=== PATIENT | female | born 1950 | race Caucasian/White ===

== ENCOUNTER 2023-12-08 00:51 | Inpatient (IN) ==
[2023-12-08] MEDS ORDERED: SODIUM CHLORIDE 0.9% 500 ML IV ONE (01:06)
[2023-12-08 01:31] LABS: Basophils # (auto) 0.02 K/uL (0.00-0.20); Basophils % (auto) 0.2 %; Eosinophils # (auto) 0.03 K/uL (0.00-0.50); Eosinophils % (auto) 0.3 %; Hematocrit (blood only) 41.9 % (37.0-47.0); Hemoglobin 14.7 g/dl (12.0-16.0); Immature Granulocytes # (auto) 0.05 K/uL (0.01-0.20); Immature Granulocytes % (auto) 0.5 %; Lymphocytes # (auto) 1.94 K/uL (1.20-3.40); Mean Corpuscular Hemoglobin 30.5 pg (25.0-34.0); Mean Corpuscular Hgb Conc 35.1 g/dL (32.0-36.0); Mean Corpuscular Volume 86.9 fL (80.0-100.0); Mean Platelet Volume 10.1 fL (9.4-12.4); Monocytes # (auto) 0.73 K/uL (0.11-0.59); Monocytes % (auto) 7.5 %; Neutrophils # (auto) 6.92 K/uL (1.40-6.50); Neutrophils % (auto) 71.5 %; Platelet Count 267 K/uL (130-400); RDW Coefficient of Variation 12.7 % (11.5-14.5); RDW Standard Deviation 40.3 fL (36.4-46.3); Red Blood Count 4.82 M/uL (4.20-5.40); White Blood Count 9.69 K/ul (4.8-10.8)
[2023-12-08 01:38] LABS: Albumin Level 4.5 gm/dl (3.4-5.0); Bilirubin,Total 0.6 mg/dl (0.2-1.0); Potassium 3.6 mmol/L (3.5-5.1)
[2023-12-08 01:44] LABS: Albumin Globulin Ratio 1.7 (0.9-2); BUN Creatinine Ratio 21.7 (10-20); Creatinine Clr Calc Pharmacy 52.4 ml/min; Est GFR (African American) 79.9 ml/min; Globulin 2.7 gm/dl (2.5-4.0); Total Protein 7.2 gm/dl (6.0-8.3)
[2023-12-08] MEDS ORDERED: ONDANSETRON INJ 2 MG/ML 2 ML VIAL IV STA (01:59)
[2023-12-08] MEDS ORDERED: MoRPHine SULFATE 4 MG/ML 1 ML CARP\\VIAL IV STA (01:59)
--- NOTE | 2023-12-08 02:02 | Emergency Department Note ---
Impression & Plan Renal colic, Acute flank pain, Vomiting ED Provider Note NAME: DONOVAN POTTS AGE: 73 SEX: F : 1950 ARRIVES VIA: Walk-In INFORMANT: Patient ED PROVIDER(S): Baldemar Banegas DO CHIEF COMPLAINT: abdominal pain HPI: Patient is a 73-year-old female who presents to the ER for left mid abdominal pain. States that started several hours prior to arrival associated with nausea and vomiting. No previous abdominal surgeries. Normal bowel movement earlier today. She notes she has never had anything like this before. Denies any dysuria, urgency, or frequency. No headache or change in vision. No chest pain or shortness of breath. Friend at bedside adds additional information/history notes that she has been persistently dry heaving. ADDITIONAL HISTORY OBTAINED: Per HPI Chronic Medical/Social Conditions Affecting Care: Per HPI PAST MEDICAL HISTORY:See Below PAST SURGICAL HISTORY:See Below FAMILY HISTORY:See Below SOCIAL HISTORY:See Below HOME MEDICATIONS:See Below ALLERGIES:See Below VITALS:See Below PHYSICAL EXAMINATION: GENERAL: Sitting up in bed, alert, disheveled, mild distress holding left lower abdomen EYE EXAM: normal conjunctiva. OROPHARYNX: Dry mucous membranes NECK: supple, no nuchal rigidity, no adenopathy, non-tender LUNGS: Clear to auscultation. Normal chest wall mechanics HEART: no murmurs, S1 normal and S2 normal ABDOMEN: abdomen soft, non-tender, normo-active bowel sounds, no masses, no rebound or guarding. UPPER EXTREMITIES: upper extremities are grossly normal. LOWER EXTREMITIES: No pitting edema. NEURO EXAM: Normal sensorium, cranial nerves II-XII grossly intact, normal speech, no gross weakness of arms, no gross weakness of legs. MEDICAL DECISION MAKING: Patient is a 73-year-old female who presents ER for above-stated complaint. IV was established blood work was obtained. Labs show no significant leukocytosis or anemia. BMP with mild hyponatremia 133. LFTs bilirubin was unremarkable. Lipase was normal. UA with hematuria. CT abdomen pelvis shows 1.1 cm left proximal ureteral stone. She was given IV fluids, Zofran, morphine x 2. With the recurrence of the pain and size of stone she was discussed with the hospitalist for further observation. Did discuss with urology as well. Consults/Care Managements Discussions: Per [facility] Triage Nursing notes reviewed. Limited review of prior medical records performed Vital Signs: reviewed and remarkable for no significant abnormalities Differential diagnosis: Differential diagnoses includes but is not limited to gastritis, peptic ulcer disease, GERD, gallbladder disease, pancreatitis, small bowel obstruction, appendicitis, diverticulitis, hernia, urinary tract infection, torsion, /ectopic (if female), perforation, trauma, infectious. ER treatment provided: See below Diagnostics interpreted by me include EKG and cardiac monitoring as listed below: -Cardiac Monitoring: An order was placed for continuous cardiac monitoring. The monitor shows a rate of 70 with sinus rhythm. -ECG: none -Laboratory studies:Interpreted by me as stated above in MDM and shown below. Imaging studies: Xrays: As interpreted by me:none CTs show: CT abdomen pelvis per my preliminary interpretation shows left proximal ureter CT abdomen pelvis per radiology as described above Procedures:none Critical Care: None Past Med/Surg History Social History Smoking Status: Never smoker Preferred Language: [place] Feels Safe at Home: Yes Allergies Allergies Allergy/AdvReac Type Severity Reaction Status Date / Time lisinopril AdvReac Intermediate Cough Verified 12/08/23 02:18 Home Meds Home Medications Medication Instructions Recorded Confirmed amlodipine 5 mg tablet 5 mg PO DAILY 12/08/23 12/08/23 aspirin 81 mg tablet,delayed 81 mg PO DAILY 12/08/23 12/08/23 release calcium carbonate 600 mg-vitamin 1 tab PO BID 12/08/23 12/08/23 D3 10 mcg (400 unit) tablet (Calcium 600 + D(3)) guar gum 1 tbsp PO DAILY 12/08/23 12/08/23 hydrochlorothiazide 12.5 mg capsule 12.5 mg PO DAILY 12/08/23 12/08/23 loratadine 10 mg tablet (Claritin) 10 mg PO DAILY PRN Congestion 12/08/23 12/08/23 metoprolol succinate 25 mg 25 mg PO DAILY 12/08/23 12/08/23 tablet,extended release 24 hr omega-3 fatty acids 1,000 mg 1,000 mg PO DAILY 12/08/23 12/08/23 capsule pravastatin 20 mg tablet 20 mg PO DAILY 12/08/23 12/08/23 venlafaxine 150 mg 150 mg PO DAILY 12/08/23 12/08/23 capsule,extended release 24 hr venlafaxine 37.5 mg 37.5 mg PO DAILY 12/08/23 12/08/23 capsule,extended release 24 hr Results & Data (ED) Vital Signs Vital Signs - 24 hr 12/08/23 00:55 12/08/23 02:49 Temperature 36.4 C L Temperature Source Temporal Artery Scan Pulse Rate 61 Pulse Rate [Apical] 75 Pulse Rhythm [Apical] Regular Pulse Strength [Apical] Normal Respiratory Rate 16 20 Respiratory Effort / Characteristics Non-Labored Respiratory Depth Normal Respiratory Pattern Regular Blood Pressure 154/80 H Blood Pressure [Right Arm] 135/75 Blood Pressure Mean 104 Blood Pressure Mean [Right Arm] 95 Blood Pressure Position [Right Arm] Sitting Pulse Oximetry 99 97 Oxygen Delivery Method Room Air Room Air Sepsis Recent Fever Within 48 Hours No Sepsis New/Unexplained Change in Mental Status No Sepsis Action Taken by Nursing No Action Required Laboratory Data 12/08/23 01:04 12/08/23 01:04 Lab Results 12/08/23 12/08/23 Range/Units 01:04 02:32 WBC 9.69 (4.8-10.8) K/ul RBC 4.82 (4.20-5.40) M/uL Hgb 14.7 (12.0-16.0) g/dl Hct 41.9 (37.0-47.0) % MCV 86.9 (80.0-100.0) fL MCH 30.5 (25.0-34.0) pg MCHC 35.1 (32.0-36.0) g/dL RDW Std Deviation 40.3 (36.4-46.3) fL RDW Coeff of Gayatri 12.7 (11.5-14.5) % Plt Count 267 (130-400) K/uL MPV 10.1 (9.4-12.4) fL Immature Gran % (Auto) 0.5 % Neut % (Auto) 71.5 % Lymph % (Auto) 20.0 % [place] % (Auto) 7.5 % Eos % (Auto) 0.3 % Baso % (Auto) 0.2 % Neut # (Auto) 6.92 H (1.40-6.50) K/uL Lymph # (Auto) 1.94 (1.20-3.40) K/uL [place] # (Auto) 0.73 H (0.11-0.59) K/uL Eos # (Auto) 0.03 (0.00-0.50) K/uL Baso # (Auto) 0.02 (0.00-0.20) K/uL Immature Gran # (Auto) 0.05 (0.01-0.20) K/uL Sodium 133 L (136-145) mmol/L Potassium 3.6 (3.5-5.1) mmol/L Chloride 98 (98-107) mmol/L Carbon Dioxide 22 (21-32) mmol/L Anion Gap 13 H (3-11) BUN 18 (6-23) mg/dl Creatinine 0.83 (0.6-1.2) mg/dl Est Cr Clr Drug Dosing 52.4 ml/min Est GFR ( Amer) 79.9 ml/min Est GFR (Non-Af Amer) 69.0 ml/min BUN/Creatinine Ratio 21.7 H (10-20) Glucose 146 H (70-99(Fasting)) mg/dl Calcium 10.0 (8.6-10.3) mg/dl Total Bilirubin 0.6 (0.2-1.0) mg/dl AST 22 (13-39) U/L ALT 14 (7-52) U/L Alkaline Phosphatase 80 (34-104) U/L Total Protein 7.2 (6.0-8.3) gm/dl Albumin 4.5 (3.4-5.0) gm/dl Globulin 2.7 (2.5-4.0) gm/dl Albumin/Globulin Ratio 1.7 (0.9-2) Lipase 16 (11-82) U/L Urine Color Yellow Urine Appearance Cloudy A (Clear) Urine pH 8.0 H (4.5-7.5) Ur Specific Bow 1.011 (1.000-1.030) Urine Protein Negative (Negative) Urine Glucose (UA) Trace H (Negative) Urine Ketones 1+ H (Negative) Urine Blood 1+ H (Negative) Urine Nitrite Negative (Negative) Urine Bilirubin Negative (Negative) Urine Urobilinogen Negative (Negative) Ur Leukocyte Esterase Negative (Negative) Urine WBC (Auto) 1-5 (0-5) /hpf Urine RBC (Auto) 10-30 H (0-4) /hpf U Hyaline Cast (Auto) 0 (0-5) /lpf U Epithel Cells (Auto) 5-10 H (0-5) /lpf Urine Bacteria (Auto) Negative (Negative) Administered Medications Discontinued Medications Sodium Chloride (Nss) 500 mls @ 999 mls/hr IV .Q31M ONE Stop: 12/08/23 01:36 Last Infusion: 12/08/23 01:48 Dose: Infused Documented By: Admin: 12/08/23 01:08 Dose: 999 mls/hr Documented By: ROGER Ioversol (Optiray 320 500ml) 100 ml IV ONCE ONE Stop: 12/08/23 02:31 Last Admin: 12/08/23 02:30 Dose: 82 ml Documented By: SUDHIR Morphine Sulfate (Morphine Sulfate 4 Mg/Ml 1 Ml Carp\Vial) 4 mg IV NOW STA Stop: 12/08/23 02:00 Last Admin: 12/08/23 02:12 Dose: 4 mg Documented By: KELSEA Morphine Sulfate (Morphine Sulfate 10 Mg/Ml Carp/Vial) 6 mg IV NOW STA Stop: 12/08/23 03:13 Last Admin: 12/08/23 03:40 Dose: 6 mg Documented By: KELSEA Ondansetron HCl (Ondansetron Inj 2 Mg/Ml 2 Ml Vial) 4 mg IV NOW STA Stop: 12/08/23 02:00 Last Admin: 12/08/23 02:13 Dose: 4 mg Documented By: KELSEA Imaging Data Radiologist's Impression: Abdomen/Pelvis CT 12/08/23 01:59 Exam(s): CT ABDOMEN + PELVIS With Contrast IV Amt: 82 ML OPTIRAY 320 EXAM: CT Abdomen and Pelvis With Intravenous Contrast CLINICAL HISTORY: Reason for exam: llq abd pain. TECHNIQUE: Axial computed tomography images of the abdomen and pelvis with intravenous contrast. CTDI is 19.65 mGy and DLP is 840.79 mGy-cm. Automated exposure control was utilized for the study. A dose lowering technique was utilized adhering to the principles of ALARA. CONTRAST: Patient received 82 ML OPTIRAY 320 of IV contrast COMPARISON: No relevant prior studies available. FINDINGS: Lung bases: Unremarkable. No mass. No consolidation. ABDOMEN: Liver: Unremarkable. No mass. Gallbladder and bile ducts: Unremarkable. No calcified stones. No ductal dilation. Pancreas: Unremarkable. No mass. No ductal dilation. Spleen: Unremarkable. No splenomegaly. Adrenals: Unremarkable. No mass. Kidneys and ureters: 1.1 cm left ureteropelvic junction calculus causing moderate hydronephrosis. Stomach and bowel: Unremarkable. No obstruction. No mucosal thickening. PELVIS: Appendix: No findings to suggest acute appendicitis. Bladder: Unremarkable. No mass. Reproductive: Unremarkable as visualized. ABDOMEN and PELVIS: Intraperitoneal space: Unremarkable. No free air. No significant fluid collection. Bones/joints: No acute fracture. No dislocation. Soft tissues: Unremarkable. Vasculature: Unremarkable. No abdominal aortic aneurysm. Lymph nodes: Unremarkable. No enlarged lymph nodes. IMPRESSION: 1.1 cm left ureteropelvic junction calculus causing moderate hydronephrosis. Electronically signed by: Dewayne Fenton M.D. 12/08/23 03:02 AM Discharge Plan Visit Data Chief Complaint: Abdominal Pain Stated Complaint: SEVERE ABDOMINAL PAIN ED Provider: Baldemar Banegas Discharge Problem: Renal colic, Acute flank pain, Vomiting Forms Stand Alone Forms: My [facility] [address] [place] Prescriptions Prescriptions: No Action venlafaxine 37.5 mg capsule,extended release 24hr 37.5 mg PO DAILY Rx Instructions: TOTAL DOSE 187.5 MG--TAKES WITH 150 MG CAP. omega-3 fatty acids 1,000 mg Capsule 1,000 mg PO DAILY venlafaxine 150 mg capsule,extended release 24hr 150 mg PO DAILY Rx Instructions: TOTAL DOSE 187.5 MG--TAKES WITH 37.5 MG CAP. amlodipine 5 mg tablet 5 mg PO DAILY aspirin 81 mg Tablet,Delayed Release (Dr/Ec) 81 mg PO DAILY Benefiber (guar gum) Packet 1 tbsp PO DAILY Rx Instructions: mix into at least 4 oz water or juice before administering hydrochlorothiazide 12.5 mg capsule 12.5 mg PO DAILY pravastatin 20 mg tablet 20 mg PO DAILY metoprolol succinate 25 mg tablet extended release 24 hr 25 mg PO DAILY loratadine [Claritin] 10 mg Tablet 10 mg PO DAILY PRN (Reason: Congestion) calcium carbonate-vitamin D3 [Calcium 600 + D(3)] 600 mg-10 mcg (400 unit) Tablet 1 tab PO BID Referrals Referrals: PCP,NO [Physician] - Discharge Problem: Vomiting Qualifiers: Vomiting type: unspecified Nausea presence: unspecified Qualified Code(s): R 11.10 - Vomiting, unspecified
[2023-12-08] MEDS ORDERED: OPTIRAY 320 500ml IV ONE (02:30)
[2023-12-08 02:45] LABS: Appearance Urine Cloudy (Clear); Bacteria Urine Automated Negative (Negative); Bilirubin Urine Negative (Negative); Blood Urine 1+ (Negative); Cast Urine Automated 0 /lpf (0-5); Color Urine Yellow; Glucose Urine UA Trace (Negative); Ketones Urine 1+ (Negative); Leukocyte Esterase Urine Negative (Negative); Nitrite Urine Negative (Negative); Protein Urine Negative (Negative); Specific Gravity Urine 1.011 (1.000-1.030); Urobilinogen Urine Negative (Negative)
--- NOTE | 2023-12-08 03:03 | CT Scan Report ---
Exam(s): CT ABDOMEN + PELVIS With Contrast IV Amt: 82 ML OPTIRAY 320 EXAM: CT Abdomen and Pelvis With Intravenous Contrast CLINICAL HISTORY: Reason for exam: llq abd pain. TECHNIQUE: Axial computed tomography images of the abdomen and pelvis with intravenous contrast. CTDI is 19.65 mGy and DLP is 840.79 mGy-cm. Automated exposure control was utilized for the study. A dose lowering technique was utilized adhering to the principles of ALARA. CONTRAST: Patient received 82 ML OPTIRAY 320 of IV contrast COMPARISON: No relevant prior studies available. FINDINGS: Lung bases: Unremarkable. No mass. No consolidation. ABDOMEN: Liver: Unremarkable. No mass. Gallbladder and bile ducts: Unremarkable. No calcified stones. No ductal dilation. Pancreas: Unremarkable. No mass. No ductal dilation. Spleen: Unremarkable. No splenomegaly. Adrenals: Unremarkable. No mass. Kidneys and ureters: 1.1 cm left ureteropelvic junction calculus causing moderate hydronephrosis. Stomach and bowel: Unremarkable. No obstruction. No mucosal thickening. PELVIS: Appendix: No findings to suggest acute appendicitis. Bladder: Unremarkable. No mass. Reproductive: Unremarkable as visualized. ABDOMEN and PELVIS: Intraperitoneal space: Unremarkable. No free air. No significant fluid collection. Bones/joints: No acute fracture. No dislocation. Soft tissues: Unremarkable. Vasculature: Unremarkable. No abdominal aortic aneurysm. Lymph nodes: Unremarkable. No enlarged lymph nodes. IMPRESSION: 1.1 cm left ureteropelvic junction calculus causing moderate hydronephrosis. Electronically signed by: Dewayne Fenton M.D. 12/08/23 03:02 AM
[2023-12-08] MEDS ORDERED: MoRPHine SULFATE 10 MG/ML CARP/VIAL IV STA (03:12)
--- OUTSIDE RECORDS SUMMARY | 2023-12-08 03:14 | External Medical Summary | Summary of Care ---
Author Name Unknown Organization [facility] Address [address] [place] [address] Phone [phone] Care Team Providers Care Communications Manager Name Role Phone Marlen Sommers MD Primary Care Provider [phone] Reason for Referral * Evaluate & Treat - Unlimited Visits (Within 30 days (routine)) - Authorized Specialty Diagnoses / Procedures Referred By Contac t Referred To Contact Rheumatology Diagnoses Age-related osteoporosis without current pathological fracture Marlen Sommers MD [address] [place] [address] [address] [id number] Referral ID Status Reason Start Date Expiration Date Visits Requested Visits Authorized [id number] Authorized Specialty Services Required 06/17/[phone] Question Answer Referral Priority Within 30 days (routine) Comments OP , on fosamax for 2 yrs and not doesn't want to take bisphosphonate. Alternative option Reason for Visit * Reason Comments Follow Up 6 month follow up. P atient denied any new concerns. Encounter Details Date Type Department Care Team Description 06/17/2023 Office Visit General Internal [place] [address] [address] Marlen Sommers MD [facility] [address] [address] Hyperlipidemia with target LDL less than 130*; Current mild episode of major depressive disorder without prior episode (HCC); HTN, goal below 140/90; Age-related osteoporosis without current pathological fracture; Other constipation; Encounter for screening mammogram for breast cancer; Impaired fasting glucose; Viral warts, unspecified type; Other viral warts Allergies Active Allergy Reactions Severity Noted Date Comments Lisinopril Cough 11/09/2011 documented as of this encounter (statuses as of 06/27/2023) Medications Medication Sig Dispensed Refills Start Date End Date Status OMEGA-3 FISH OIL 1000 MG PO CAPS 900 mg daily 0 12/11/2011 Active ASPIRIN 81 MG PO CHEW One pill by mouth once a day with food 100 Tab 5 02/01/2014 Active Calcium Carbonate-Vitamin D 600-400 MG-UNIT Oral Tablet Chewable daily. Take 1 tab by mouth twice daily 0 10/21/2018 Active Benefiber On The GO Oral PowderIndications: Other constipation Daily on days when no miralax 0 01/21/2021 Active Loratadine 10 MG Oral Tablet (Claritin)Indicati ons:Post-nasal drip Take by mouth 1 Tablet before bedtime. x1-2 wks then as needed-otc. 1 Tablet 0 01/08/2022 Active Additional Information Patient not taking.Reported on 06/17/2023 Pravastatin Sodium 20 MG Oral Tablet (Pravachol) TAKE ONE TABLET BY MOUTH EVERY DAY 90 Tablet 2 06/03/2023 4 Active Venlafaxine HCl ER 150 MG Oral Capsule Extended Release 24 Hour (Effexor XR)Indications:Dep ressive disorder TAKE ONE CAPSULE BY MOUTH EVERY DAY - DO NOT CUT, CRUSH OR CHEW 90 Capsule 3 06/11/2023 4 Active hydroCHLOROthiazid e 12.5 MG Oral Capsule (Hydrodiuril)Indic ations:HTN, goal below 140/90 TAKE ONE CAPSULE BY MOUTH EVERY DAY 90 Capsule 3 06/11/2023 4 Active amLODIPine Besylate 5 MG Oral Tablet (Norvasc)Indicatio ns:HTN, goal below 140/90 TAKE ONE TABLET BY MOUTH EVERY DAY 90 Tablet 3 06/11/2023 4 Active Metoprolol Succinate ER 25 MG Oral Tablet Extended Release 24 Hour (toPROL XL)Indications:HTN , goal below 140/90 TAKE ONE TABLET BY MOUTH EVERY MORNING 90 Tablet 3 06/12/2023 4 Active Venlafaxine HCl ER 37.5 MG Oral Capsule Extended Release 24 Hour (Effexor XR)Indications:Cur rent mild episode of major depressive disorder without prior episode (HCC) Take 1 Capsule by mouth in the morning. Along with 150 mg . Do not cut, crush or chew. 90 Capsule 3 06/17/2023 Active Docusate Sodium 250 MG CAPS Take 1 Capsule by mouth in the morning. 0 09/02/2017 3 Discontinue d(End of Procedure) Venlafaxine HCl ER 37.5 MG Oral Capsule Extended Release 24 Hour (Effexor XR)Indications:Cur rent mild episode of major depressive disorder without prior episode (HCC) Take 1 Capsule by mouth in the morning. Do not cut, crush or chew. 90 Capsule 3 05/03/2023 3 Discontinue d(Refill) documented as of this encounter (statuses as of 06/27/2023) Active Problems Problem Noted Date Other constipation 05/25/2021 Age-related osteoporosis without current pathological fracture 11/22/2020 Advance directive on file 04/29/2015 Hyperlipidemia with target LDL less than 130 12/11/2011 Overview: ICD-10 update of inactive term HTN, goal below 140/90 Current mild episode of major depressive disorder without prior episode documented as of this encounter (statuses as of 06/27/2023) Resolved Problems Problem Noted Date Resolved Date Impaired fasting glucose 02/01/2014 018 Osteoporosis 03/11/2013 03/30/2013 documented as of this encounter (statuses as of 06/27/2023) Immunizations Name Administration Dates Next Due COVID-19 mRNA, LNP-s, No Pre serve, 2-Dose Series (Janalakshmi) 04/03/2022,08/22/2021,02/03/2021,01/13 Covid-19, Mrna, Lnp-s, Pf, B ivalent, 30 Mcg, IM, 12 yrs and above (Janalakshmi) 10/23/2022 Pneumococcal Conjugate Vacc, 13 Valent (Prevnar) 10/26/2016 Pneumococcal Polysaccharide PPV23 (Pneumovax) 02/01/2014 Seasonal Influenza, Quadriva lent Hd (Fluzone Hd) 10/23/2022 Seasonal Influenza, Quadriva lent, No Preserve, 6 Mons & Above, IM 08/13/2020,10/21/2018,09/02/2017 Seasonal Influenza, Quadriva lent, No Preserve, IM 10/26/2016,11/11/2015 Seasonal Influenza, Split, I IV3, With Preserve, Inj 07/26/2014,08/04/2013,08/09/2012,08/03 Seasonal Influenza, Trivalen t, Adjuvanted, 65+ yrs 11/02/2019 TDAP (age 11 and older)(Adacel) 08/03/2011 Varicella Zoster Vaccine (Adult) 08/04/2013 Zoster Vaccine Recombinant (Shingrix) 05/20/2021 ,11/26/2020 documented as of this encounter Social History Tobacco Use Types Packs/Day Years Used Date Smoking Tobacco: Never Smokeless Tobacco: Never Tobacco Cessation:Counseling Given: Not Answered Alcohol Use Standard Drinks/Week Comments No 25 (1 standard drink = 0.6 oz pu re alcohol) Food Insecurity Answer Date Recorded Within the past 12 months, y ou worried that your food would run out before you got money to buy more. Never true 11/02/2019 Within the past 12 months, t he food you bought just didn't last and you didn't have money to get more. Never true 11/02/2019 Sex Assigned at Date Recorded Female 05/01/2019 11:40 AM EDT Job Start Date Occupation Industry Not on file Not on file Not on file documented as of this encounter Last Filed Vital Signs Vital Sign Reading Time Taken Comments Blood Pressure 128/70 06/17/2023 9:34 AM EDT Pulse 68 06/17/2023 9:34 AM EDT Temperature 35.9 C (96.7 F) 06/17/2023 9:34 AM ED T Respiratory Rate - - Oxygen Saturation 98% 06/17/2023 9:34 AM EDT Inhaled Oxygen Concentration - - Weight 62.5 kg (137 lb 11.2 oz) 06/17/2023 9:34 AM EDT Height 160 cm (5' 3") 06/17/2023 9:34 AM EDT Body Mass Index 24.39 06/17/2023 9:34 AM EDT documented in this encounter Progress Notes * Marlen Sommers MD - 06/17/2023 9:38 AM EDT Images from the original note were not included. History of Present Illness Dawna Diamond is a 72 year old female that presents for Follow Up (6 month follow up. Patient denied any new concerns. ) 72 YOF with PMH of HTN, hyperlipidemia, derpession presents here for recheck. Acute concern :- -wart got better then came back . Been doing OTC Rx Interimmedical history : mood better with medication change Watching diet and exercise : yes Routine labs : due Routine HM : uptodate and agreable to catch up Chronic medical problem: reviewed and stable Physical Exam Vitals: 06/17/23 0934 Temp: 35.9 C (96.7 F) Pulse: 68 SpO2: 98% BP: 128/70 BMI: 24.4 Physical Exam Vitals and nursing note reviewed. Constitutional: General: She is not in acute distress. Appearance: She is normal weight. HENT: Head: Normocephalic. Cardiovascular: Rate and Rhythm: Normal rate and regular rhythm. Pulmonary: Effort: Pulmonary effort is normal. No respiratory distress. Breath sounds: No wheezing. Abdominal: General: Bowel sounds are normal. There is no distension. Palpations: Abdomen is soft. There is no mass. Musculoskeletal: General: No swelling, tenderness or signs of injury. Cervical back: Neck supple. No rigidity. Skin: General: Skin is warm. Findings: Lesion present. No erythema or rash. Comments: Verrucous lesion in both fingers 2 periungual - frozen Neurological: Mental Status: She is alert. Psychiatric: Mood and Affect: Mood normal. A ''time out'' was initiated by myself prior to this procedure. The patient was identified by name and date of . The procedure matches written consent, and correct site identified. Correct positioning (as applicable). There is availability of necessary equipment. Pre-procedure checklist was completed. Patient tolerated procedure and area of procedure as described on exam section I have reviewed the following results: CMP, Lipid Panel, Hemoglobin A1C and TSH Assessment and Plan Hyperlipidemia with target LDL less than 130 Stable Continue current treatment as directed - COMPREHENSIVE METABOLIC PANEL; Future - LIPID PANEL WITH DIRECT LDL IF TG IS HIGH; Future Current mild episode of major depressive disorder without prior episode (HCC) Cont effexor 150 - Venlafaxine HCl ER 37.5 MG Oral Capsule Extended Release 24 Hour (Effexor XR); Take 1 Capsule by mouth in the morning. Along with 150 mg . Do not cut, crush or chew. HTN, goal below 140/90 Stable Continue current treatment as directed - COMPREHENSIVE METABOLIC PANEL; Future - CBC; Future Age-related osteoporosis without current pathological fracture - HIGH RISK OSTEOPOROSIS CLINIC REFERRAL OP - 25-HYDROXY VITAMIN D; Future Other constipation Stable Continue current treatment as directed Encounter for screening mammogram for breast cancer - MAMMOGRAM SCREENING CARINA BILATERAL; Future Impaired fasting glucose - HEMOGLOBIN A1C; Future Viral warts, unspecified type - BENIGN LESION DESTRUCTION, UP TO 14 LESIONS Wrap-Up Time: I spent a total of 30-39 minutes (exact time 35 mins) on the date of service in preparation, delivery, and documentation of the care provided to Dawna Diamond excluding any time spent in the performance of separately billed services. documented in this encounter Nursing Notes * Bro Perez CMA - 06/17/2023 9:33 AM EDT Chief Complaint Patient presents with Follow Up 6 month follow up. Patient denied any new concerns. documented in this encounter Plan of Treatment Upcoming Encounters Date Type Specialty Care Team Description 08/18/2023 Office Visit Internal Medicine Marlen Sommers MD [address] [place] [address] 12/01/2023 Imaging Radiology 12/23/2023 Office Visit Internal Medicine Marlen Sommers MD [address] [address] 01/17/2024 Office Visit Rheumatology Quinten Tapia MD [address] [facility] [place] [address] Scheduled Orders Name Type Priority Associated Diagnoses Orde r Schedule MAMMOGRAM SCREENING CARINA BILATERAL Medical Imaging Routine Encounter for screening mammogram for breast cancer Expected: 11/17/2023, Expires: 07/18/2024 COMPREHENSIVE METABOLIC PANEL Lab Routine Hyperlipidemia with target LDL less than 130 HTN, goal below 140/90 Expected: 12/18/2023, Expires: 06/17/2024 LIPID PANEL WITH DIRECT LDL IF TG IS HIGH Lab Routine Hyperlipidemia with target LDL less than 130 Expected: 12/18/2023, Expires: 06/17/2024 HEMOGLOBIN A1C Lab Routine Impaired fasting glucose Expected: 12/18/2023, Expires: 06/17/2024 25-HYDROXY VITAMIN D Lab Routine Age-related osteoporosis without current pathological fracture Expected: 12/18/2023, Expires: 06/16/2024 CBC Lab Routine HTN, goal below 140/90 Expected: 12/18/2023 (Approximate), Expires: 06/16/2024 BENIGN LESION DESTRUCTION, UP TO 14 LESIONS Procedures Routine Viral warts, unspecified type Ordered: 06/27/2023 Scheduled Procedures Name Priority Associated Diagnoses Date/Ti me COLONOSCOPY FLEXIBLE PROXIMA L DIAGNOSTIC Recall Tubulovillous adenoma of colon Scheduled Referrals Name Type Priority Associated Diagnoses Orde r Schedule HIGH RISK OSTEOPOROSIS CLINIC REFERRAL OP Referral Within 30 days (routine) Age-related osteoporosis without current pathological fracture Ordered: 06/17/2023 Health Maintenance Due Date Last Done Comments DTaP,Tdap,and Td Vaccines (2 - Td or Tdap) 08/03/2021 08/03/2011 Mammogram 11/28/2022 11/28/2021, 12/2019, 11/02/2018, Additional history exists *BISPHONATE OR OTHER ACCEPTABLE MEDICATION NEEDED FOR OSTEOPOROSIS (REFER TO SMARTSET #1146) 12/19/2022 Influenza Vaccine (FLU shot) (#1) 2023 10/23/2022, 08/13/2020, 11/02/2019, Additional history exists Depression Screening, Annual for Pts 12 and Over 12/17/2023 12/17/2022 DXA Scan 01/07/2024 01/07/2022, 06/15, 05/28/2015, Additional history exists GFR 06/11/2024 06/11/2023, 11/16, 06/05/2022, Additional history exists Albumin/Creatinine Ratio 06/11/2025 06/11/2022 COLONOSCOPY-EVERY 5 YRS AGES 18-100 05/14/2026 05/14/2021, 05/14/2021, 11/28/2015, Additional history exists Lipid Panel 06/11/2028 06/11/2023, 11/16, 06/05/2022, Additional history exists Pneumococcal Vaccine: 65+ Years Completed 10/26/2016, 02/01/2014 Zoster Vaccines Completed 05/20/2021, 11/15, 08/04/2013 VITAMIN D LEVEL ONCE IN A LIFETIME-USE SMARTSET# [id number] Completed 06/05/2022, 12/16/2011 COVID-19 Vaccine Completed 10/23/2022, , 08/22/2021, Additional history exists GARDASIL-HPV IMMUNIZATION SERIES Aged Out No longer eligible based on patient's age to complete this topic Hepatitis B Aged Out No longer eligi ble based on patient's age to complete this topic MENINGOCOCCAL (MENACTRA/MENVEO) Aged Out No longer eligible based on patient's age to complete this topic documented as of this encounter Medical Devices Implanted Type Area Electronics Instructor Device Identifier Shelf Expiration Date Model / Serial / Lot Envista Hydrophobic Acrylic Toric Intraocular Lens Toric Implanted:Qty: 1 on 01/13/2022 by Arnoldo Milner MD at OR [facility] Left: Eye [employer] 01/13/2024 [id number] / [id number] / [id number] Toric 17.5 Implanted:Qty: 1 on 01/27/2022 by Arnoldo Milner MD at OR [facility] Right: Eye 02/12/2022 [id number] / [id number] / documented as of this encounter Visit Diagnoses Diagnosis Hyperlipidemia with target LDL less than 130- Primary Other and unspecified hyperlipidemia Current mild episode of major depressive disorder without prior episode (HCC) HTN, goal below 140/90 Unspecified essential hypertension Age-related osteoporosis without current pathological fracture Senile osteoporosis Other constipation Encounter for screening mammogram for breast cancer Impaired fasting glucose Viral warts, unspecified type documented in this encounter Care Teams Communications Manager Relationship Specialty Start Date End Date Marlen Sommers MD [address] [facility] [place] [address] PCP - General Internal Medicine 12/10/11 documented as of this encounter
--- OUTSIDE RECORDS SUMMARY | 2023-12-08 03:14 | External Medical Summary ---
Author Name Unknown Address Unknown Organization K09:[facility] [place] [address] Laboratory Report Ordering Provider Test Date Status SALVADOR VILLALTA 08/17/2023 09:05:58 Final Observation Date Value Abnormality Reference (Units ) Status BUN 08/17/2023 09:05:58 16 6-20 (mg/dL) Final Creatinine 08/17/2023 09:05:58 0.9 0.5-1.0 (mg/dL) Final Glomerular filtration rate/1.73 sq M.predicted [Volume Rate/Area] in Serum, Plasma or Blood by Creatinine-based formula (CKD-EPI) 08/17/2023 09:05:58 65 >=60 (mL/min) Final eGFR is calculated based on the CKD-EPI 2020 equation SODIUM 08/17/2023 09:05:58 139 135-146 (m mol/L) Final Potassium 08/17/2023 09:05:58 4.1 3.5-5.1 (m mol/L) Final Cl 08/17/2023 09:05:58 100 98-107 (mm ol/L) Final CO2 08/17/2023 09:05:58 30 22-32 (mmo l/L) Final Anion gap 08/17/2023 09:05:58 9 7-15 (mmol /L) Final Glucose 08/17/2023 09:05:58 80 70-120 (mg /dL) Final Albumin 08/17/2023 09:05:58 4.8 3.8-5.0 (g /dL) Final AST (Aspartate aminotransferase) 08/17/2023 09:05:58 25 10-35 (U/L) Final Alk Phos 08/17/2023 09:05:58 91 35-130 (U/ L) Final Bilirubin, Total 08/17/2023 09:05:58 0.5 <=1 .2 (mg/dL) Final Calcium 08/17/2023 09:05:58 9.7 8.4-10.2 ( mg/dL) Final Protein 08/17/2023 09:05:58 6.8 6.0-8.3 (g /dL) Final ALT (Alanine aminotransferase) 08/17/2023 09:05:58 30 10-35 (U/L) Final Performing Location [facility] [address] [place] [address]
--- OUTSIDE RECORDS SUMMARY | 2023-12-08 03:14 | External Medical Summary | Summary of Care ---
Author Name Unknown Organization [facility] Address [address] [place] [address] Phone [phone] Care Team Providers Care Environmental Research Scientist Name Role Phone Marlen Sommers MD Primary Care Provider [phone] Reason for Visit * Reason Comments Abdominal Pain C/o lower abdominal pain for the past month. Describes it as a burning pain. Denies urinary or bowel issues or symptoms. Encounter Details Date Type Department Care Team Description 07/29/2023 Office Visit General Internal Medicine [facility] [place] [address] [facility] [place] [address] Marlen Sommers MD [address] [place] [address] Periumbilical abdominal pain*; Other constipation; HTN, goal below 140/90; Hyperlipidemia with target LDL less than 130; Current mild episode of major depressive disorder without prior episode (HCC) Allergies Active Allergy Reactions Severity Noted Date Comments Lisinopril Cough 11/09/2011 documented as of this encounter (statuses as of 08/08/2023) Medications Medication Sig Dispensed Refills Start Date [...] 10/21/2018 Active Benefiber On The GO Oral PowderIndications:Ot her constipation Daily on days when no miralax 0 01/21/2021 Active Loratadine 10 MG Oral Tablet (Claritin)Indication s:Post-nasal drip Take by mouth 1 Tablet before bedtime. x1-2 wks then as needed-otc. 1 Tablet 0 01/08/2022 Active Pravastatin Sodium 20 MG Oral Tablet (Pravachol) TAKE ONE TABLET BY MOUTH EVERY DAY 90 Tablet 2 06/03/2023 06/02/2024 Active Venlafaxine HCl ER 150 MG Oral Capsule Extended Release 24 Hour (Effexor XR)Indications:Depre ssive disorder TAKE ONE CAPSULE BY MOUTH EVERY DAY - DO NOT CUT, CRUSH OR CHEW 90 Capsule 3 06/11/2023 06/10/2024 Active hydroCHLOROthiazide 12.5 MG Oral Capsule (Hydrodiuril)Indicat ions:HTN, goal below 140/90 TAKE ONE CAPSULE BY MOUTH EVERY DAY 90 Capsule 3 06/11/2023 06/10/2024 Active amLODIPine Besylate 5 MG Oral Tablet (Norvasc)Indications :HTN, goal below 140/90 TAKE ONE TABLET BY MOUTH EVERY DAY 90 Tablet 3 06/11/2023 06/10/2024 Active Metoprolol Succinate ER 25 MG Oral Tablet Extended Release 24 Hour (toPROL XL)Indications:HTN, goal below 140/90 TAKE ONE TABLET BY MOUTH EVERY MORNING 90 Tablet 3 06/12/2023 06/11/2024 Active Venlafaxine HCl ER 37.5 MG Oral Capsule Extended Release 24 Hour (Effexor XR)Indications:Curre nt mild episode of major depressive disorder without prior episode (HCC) Take 1 Capsule by mouth in the morning. Along with 150 mg . Do not cut, crush or chew. 90 Capsule 3 06/17/2023 Active Omeprazole 20 MG Oral Capsule Delayed Release (PriLOSEC) Take 1 Capsule by mouth in the morning and 1 Capsule before bedtime. 30 minutes before a meal for 2 weeks then once a day. 60 Capsule 5 07/29/2023 Active documented as of this encounter (statuses as of 08/08/2023) Active Problems Problem Noted Date Other constipation 05/25/2021 Age-related osteoporosis without current pathological fracture 11/22/2020 Advance directive on file 04/29/2015 Hyperlipidemia with target LDL less than 130 12/11/2011 Overview: ICD-10 update of inactive term HTN, goal below 140/90 Current mild episode of major depressive disorder without prior episode documented as of this encounter (statuses as of 08/08/2023) Resolved Problems Problem Noted Date Resolved Date Impaired fasting glucose 02/01/2014 018 Osteoporosis 03/11/2013 03/30/2013 documented as of this encounter (statuses as of 08/08/2023) Immunizations Name Administration Dates Next Due COVID-19 mRNA, LNP-s, No Pre serve, 2-Dose Series (Pfizer) 04/03/2022,08/22/2021,02/03/2021,01/13 Covid-19, Mrna, Lnp-s, Pf, B ivalent, 30 Mcg, IM, 12 yrs and above (Pfizer) 10/23/2022 Pneumococcal Conjugate Vacc, 13 Valent (Prevnar) 10/26/2016 Pneumococcal Polysaccharide PPV23 (Pneumovax) 02/01/2014 Seasonal Influenza, PF, 6 mo ns & Above, IM , (Flulaval) 08/13/2020,10/21/2018,09/02/2017 Seasonal Influenza, Quadriva lent Hd (Fluzone Hd) 10/23/2022 Seasonal Influenza, Quadriva lent, No Preserve, IM 10/26/2016,11/11/2015 Seasonal Influenza, Split, I IV3, With Preserve, Inj 07/26/2014,08/04/2013,08/09/2012,08/03 Seasonal Influenza, Trivalen t, Adjuvanted, 65+ yrs 11/02/2019 TDAP (age 11 and older)(Adacel) 08/03/2011 Varicella Zoster Vaccine (Adult) 08/04/2013 Zoster Vaccine Recombinant (Shingrix) 05/20/2021 ,11/26/2020 documented as of this encounter Social History Tobacco Use Types Packs/Day Years Used Date Smoking Tobacco: Never Smokeless Tobacco: Never Alcohol Use Standard Drinks/Week Comments No 25 [...] Sign Reading Time Taken Comments Blood Pressure 126/70 07/29/2023 4:18 PM EDT Pulse 64 07/29/2023 4:18 PM EDT Temperature 37.3 C (99.1 F) 07/29/2023 4:18 PM ED T Respiratory Rate - - Oxygen Saturation 98% 07/29/2023 4:18 PM EDT Inhaled Oxygen Concentration - - Weight 62.5 kg (137 lb 12.8 oz) 07/29/2023 4:18 PM EDT Height - - Body Mass Index 24.41 06/17/2023 9:34 AM EDT documented in this encounter Progress Notes * Marlen Sommers MD - 07/29/2023 4:26 PM EDT Images from the original note were not included. History of Present Illness Dawna Diamond is a 72 year old female that presents for Abdominal Pain (C/o lower abdominal pain for the past month. Describes it as a burning pain. Denies urinary or bowel issues or symptoms. ) 72 YOF with PMH of HTN, hyperlipidemia, derpession presents here for eval of abdominal pain. Taking omeprazole only as needed and not daily due ot s/e of dementia . We discussed how risk vs benefit are important and risk very small and not likely given vit b12 normal Abdominal Pain This is a new problem. The current episode started more than 1 month ago. The problem occurs constantly. The problem has been unchanged. The pain is located in the periumbilical region. The pain is at a severity of 4/10. The pain is mild (moderate since 2 days ago). The abdominal pain does not radiate. Associated symptoms include belching and nausea. Pertinent negatives include no constipation, diarrhea, dysuria, frequency, headaches or vomiting. The pain is aggravated by palpation and certain positions. The pain is relieved by Nothing. She has tried proton pump inhibitors ( NEEDED) for thesymptoms. Her past medical history is significant for GERD. There is no history of gallstones or PUD. Physical Exam Vitals: 07/29/23 1618 Temp: 37.3 C (99.1 F) Pulse: 64 SpO2: 98% BP: 126/70 Physical Exam Vitals reviewed. Constitutional: General: She is not in acute distress. Appearance: She is normal weight. She is not ill-appearing. HENT: Head: Normocephalic. Mouth/Throat: Mouth: Mucous membranes are moist. Pharynx: Oropharynx is clear. No oropharyngeal exudate or posterior oropharyngeal erythema. Cardiovascular: Rate and Rhythm: Normal rate and regular rhythm. Heart sounds: Normal heart sounds. No murmur heard. Pulmonary: Effort: Pulmonary effort is normal. No respiratory distress. Breath sounds: Normal breath sounds. No wheezing. Abdominal: General: There is no distension. Palpations: Abdomen is soft. There is no mass. Tenderness: There is abdominal tenderness in the epigastric area and periumbilical area. Musculoskeletal: General: No swelling or tenderness. Cervical back: No rigidity or tenderness. Right lower leg: No edema. Left lower leg: No edema. Lymphadenopathy: Cervical: No cervical adenopathy. Skin: General: Skin is warm. Neurological: Mental Status: She is alert. I have reviewed the following results: Assessment and Plan Periumbilical abdominal pain Suspect increased heart burn and gastritis and referred to periumbilical Start omeprazole twice a day for 2 weeks then once a day IF NO BETTER GET LABS ORDERED - CBC; Future - COMPREHENSIVE METABOLIC PANEL; Future - LIPASE; Future Other constipation Cont current plan HTN, goal below 140/90 Hyperlipidemia with target LDL less than 130 Current mild episode of major depressive disorder without prior episode (HCC) Wrap-Up Time: I spent a total of 30-39 minutes (exact time 32 mins) on the date of service in preparation, delivery, and documentation of the care provided to Dawna Diamond excluding any time spent in the performance of separately billed services. documented in this encounter Nursing Notes * Yissel Zavaleta LPN - 07/29/2023 4:18 PM EDT Chief Complaint Patient presents with Abdominal Pain C/o lower abdominal pain for the past month. Describes it as a burning pain. Denies urinary or bowel issues or symptoms. documented in this encounter Plan of Treatment Upcoming Encounters Date Type Specialty Care Team Description 08/18/2023 Office Visit Internal Medicine Marlen Sommers MD [address] [facility] [place] [address] 12/01/2023 Imaging Radiology 12/23/2023 Office Visit Internal Medicine Marlen Sommers MD [address] [facility] [place] [address] 01/17/2024 Office Visit Rheumatology Quinten Tapia MD [address] [place] [address] Scheduled Orders Name Type Priority Associated Diagnoses Orde r Schedule CBC Lab Routine Periumbilical abdominal pain Expected: 07/29/2023 (Approximate), Expires: 07/28/2024 COMPREHENSIVE METABOLIC PANEL Lab Routine Periumbilical abdominal pain Expected: 07/29/2023 (Approximate), Expires: 07/28/2024 LIPASE Lab Routine Periumbilical abdominal pain Expected: 07/29/2023 (Approximate), Expires: 07/28/2024 Scheduled Procedures Name Priority Associated Diagnoses Date/Ti me COLONOSCOPY FLEXIBLE PROXIMA L DIAGNOSTIC Recall Tubulovillous adenoma of colon Health Maintenance Due Date Last Done Comments DTaP,Tdap,and Td Vaccines (2 - Td or Tdap) 08/03/2021 08/03/2011 Mammogram 11/28/2022 11/28/2021, 12/2019, 11/02/2018, Additional history exists *BISPHONATE OR OTHER ACCEPTABLE MEDICATION NEEDED FOR OSTEOPOROSIS (REFER TO SMARTSET #1146) 12/19/2022 Influenza Vaccine (FLU shot) (#1) 2023 10/23/2022, 08/13/2020, 11/02/2019, Additional history exists Depression Screening 12/17/2023 12/17/2022 DXA Scan 01/07/2024 01/07/2022, 06/15, [...] D LEVEL ONCE IN A LIFETIME-USE SMARTSET# 42075 Completed 06/05/2022, 12/16/2011 COVID-19 Vaccine Completed 10/23/2022, [...] this encounter Medical Devices Implanted Type Area Wood Boatbuilder Device Identifier Shelf Expiration Date Model / Serial / Lot Envista Hydrophobic Acrylic Toric Intraocular Lens Toric Implanted:Qty: 1 on 01/13/2022 by Arnoldo Milner MD at OR [facility] Left: Eye [employer]OM[employer] 01/13/2024 [id number] / [id number] / [id number] Toric 17.5 Implanted:Qty: 1 on 01/27/2022 by Arnoldo Milner MD at OR [facility] Right: Eye 02/12/2022 [id number] / [id number] / documented as of this encounter Visit Diagnoses Diagnosis Periumbilical abdominal pain- Primary Abdominal pain, periumbilic Other constipation HTN, goal below 140/90 Unspecified essential hypertension Hyperlipidemia with target LDL less than 130 Other and unspecified hyperlipidemia Current mild episode of major depressive disorder without prior episode (HCC) documented in this encounter Care Teams Environmental Research Scientist Relationship Specialty Start Date End Date Marlen Sommers MD [address] [place] [address], [place] [address] PCP - General Internal Medicine 12/10/11 documented as of this encounter
--- OUTSIDE RECORDS SUMMARY | 2023-12-08 03:14 | External Medical Summary | Summary of Care ---
Author Name Unknown Organization [facility] Address [address] [place] [address] Phone [phone] Care Team Providers Care Mixing Supervisor Name Role Phone Marlen Sommers MD Primary Care Provider [phone] Reason for Visit * Reason Comments Medication Refill Encounter Details Date Type Department Care Team Description 06/11/2023 Refill General Internal Medicine [facility] [address] [facility] [place], [place] [id number] Marlen Sommers MD [address] [place], [place] [id number] HTN, goal below 140/90 Allergies Active Allergy Reactions Severity Noted Date Comments Lisinopril Cough 11/09/2011 documented as of this encounter (statuses as of 06/12/2023) Medications Medication Sig Dispensed Refills Start Date End Date Status OMEGA-3 FISH OIL 1000 MG PO CAPS 900 mg daily 0 12/11/2011 Active ASPIRIN 81 MG PO CHEW One pill by mouth once a day with food 100 Tab 5 02/01/2014 Active Docusate Sodium 250 MG CAPS Take 1 Capsule by mouth in the morning. 0 09/02/2017 Active Calcium Carbonate-Vitamin D 600-400 MG-UNIT Oral Tablet Chewable daily. Take 1 tab by mouth twice daily 0 10/21/2018 Active Benefiber On The GO Oral PowderIndications: Other constipation Daily on days when no miralax 0 01/21/2021 Active Loratadine 10 MG Oral Tablet (Claritin)Indicati ons:Post-nasal drip Take by mouth 1 Tablet before bedtime. x1-2 wks then as needed-otc. 1 Tablet 0 01/08/2022 Active Venlafaxine HCl ER 37.5 MG Oral Capsule Extended Release 24 Hour (Effexor XR)Indications:Cur rent mild episode of major depressive disorder without prior episode (HCC) Take 1 Capsule by mouth in the morning. Do not cut, crush or chew. 90 Capsule 3 05/03/2023 Active Pravastatin Sodium 20 MG Oral Tablet (Pravachol) TAKE ONE TABLET BY MOUTH EVERY DAY 90 Tablet 2 06/03/2023 06/02/2024 Active Venlafaxine HCl ER 150 MG Oral Capsule Extended Release 24 Hour (Effexor XR)Indications:Dep ressive disorder TAKE ONE CAPSULE BY MOUTH EVERY DAY - DO NOT CUT, CRUSH OR CHEW 90 Capsule 3 06/11/2023 06/10/2024 Active hydroCHLOROthiazid e 12.5 MG Oral Capsule [...] MORNING 90 Tablet 3 06/12/2023 06/11/2024 Active Metoprolol Succinate ER 25 MG Oral Tablet Extended Release 24 Hour (toPROL XL)Indications:HTN , goal below 140/90 TAKE ONE TABLET BY MOUTH EVERY MORNING 90 Tablet 3 06/11/2022 06/11/2023 Discontinued (Refill) documented as of this encounter (statuses as of 06/12/2023) Active Problems Problem Noted Date Other constipation 05/25/2021 Age-related osteoporosis without current pathological fracture 11/22/2020 Advance directive on file 04/29/2015 Hyperlipidemia with target LDL less than 130 12/11/2011 Overview: ICD-10 update of inactive term HTN, goal below 140/90 Current mild episode of major depressive disorder without prior episode documented as of this encounter (statuses as of 06/12/2023) Resolved Problems Problem Noted Date Resolved Date Impaired fasting glucose 02/01/2014 018 Osteoporosis 03/11/2013 03/30/2013 documented as of this encounter (statuses as of 06/12/2023) Immunizations Name Administration Dates Next Due COVID-19 [...] on file documented as of this encounter Miscellaneous Notes * Telephone Encounter - Isidro Zamudio [facility] - 06/12/2023 2:01 AM EDTSigned Prescriptions: Disp Refills Metoprolol Succinate ER 25 MG Oral Tablet *90 Tab*3 Sig: TAKE ONE TABLET BY MOUTH EVERY MORNINGAuthorizing Provider: Shazia SOMMERS User: ISIDRO ZAMUDIO- documented in this encounter Plan of Treatment Upcoming Encounters Date Type Specialty Care Team Description 06/17/2023 Office Visit Internal Medicine Marlen Sommers MD [address] [place] [address] Scheduled Procedures Name Priority Associated Diagnoses Date/Ti [...] D LEVEL ONCE IN A LIFETIME-USE SMARTSET# 77823 Completed 06/05/2022, 12/16/2011 COVID-19 Vaccine Completed 10/23/2022, [...] this encounter Medical Devices Implanted Type Area Waste Water Treatment Plant Operator Device Identifier Shelf Expiration Date Model / Serial / Lot Envista Hydrophobic Acrylic Toric Intraocular Lens Toric Implanted:Qty: 1 on 01/13/2022 by Arnoldo Milner MD at OR [facility] Left: Eye [employer]OM[employer] 01/13/2024 [id number] / [id number] / [id number] Toric 17.5 Implanted:Qty: 1 on 01/27/2022 by Arnoldo Milner MD at OR [facility] Right: Eye 02/12/2022 [id number] / [id number] / documented as of this encounter Visit Diagnoses Diagnosis HTN, goal below 140/90 Unspecified essential hypertension documented in this encounter Care Teams Mixing Supervisor Relationship Specialty Start Date End Date Marlen Sommers MD [address] [place] [address] PCP - General Internal Medicine 12/10/11 documented as of this encounter
--- OUTSIDE RECORDS SUMMARY | 2023-12-08 03:14 | External Medical Summary ---
Author Name Unknown Address Unknown Organization K09[facility] [place] [address] Laboratory Report Ordering Provider Test Date Status SALVADOR VILLALTA 08/17/2023 09:05:58 Final Observation Date Value Abnormality Reference (Units ) Status WBC, Total 08/17/2023 09:05:58 6.12 4.00-10.8 0 (K/uL) Final RBC 08/17/2023 09:05:58 4.58 3.85-5.15 (M/uL) Final Hemoglobin 08/17/2023 09:05:58 14.0 12.0-15.3 (g/dL) Final HCT 08/17/2023 09:05:58 42.6 36.0-45.2 (%) Final MCV 08/17/2023 09:05:58 93.0 81.5-97.5 (fL) Final MCH 08/17/2023 09:05:58 30.6 27.0-34.0 (pg) Final MCHC 08/17/2023 09:05:58 32.9 32.0-36.0 (g/dL) Final RDW 08/17/2023 09:05:58 14.3 11.5-15.5 (%) Final Platelets 08/17/2023 09:05:58 263 140-400 (K /uL) Final MPV 08/17/2023 09:05:58 9.7 6.6-11.1 ( fL) Final Performing Location [facility] [place] [address]
--- OUTSIDE RECORDS SUMMARY | 2023-12-08 03:14 | External Medical Summary | Summary of Care ---
Author Name Unknown Organization [facility] Address [address] [place] [address] Phone [phone] Care Team Providers Care Concrete Boom Pump Operator Name Role Phone Malren Sommers MD Primary Care Provider [phone] Reason for Visit * Reason Comments Outpatient Testing Encounter Details Date Type Department Care Team Description 08/17/2023 Laboratory Laboratory [facility] [place] [address] [place] [address] [facility] [address] [place] [id number] Periumbilical abdominal pain Allergies Active Allergy Reactions Severity Noted Date Comments Lisinopril Cough 11/09/2011 documented as of this encounter (statuses as of 08/17/2023) Medications Medication Sig Dispensed Refills Start Date [...] as of this encounter (statuses as of 08/17/2023) Active Problems Problem Noted Date Other constipation 05/25/2021 Age-related osteoporosis without current pathological fracture 11/22/2020 Advance directive on file 04/29/2015 Hyperlipidemia with target LDL less than 130 12/11/2011 Overview: ICD-10 update of inactive term HTN, goal below 140/90 Current mild episode of major depressive disorder without prior episode documented as of this encounter (statuses as of 08/17/2023) Resolved Problems Problem Noted Date Resolved Date Impaired fasting glucose 02/01/2014 018 Osteoporosis 03/11/2013 03/30/2013 documented as of this encounter (statuses as of 08/17/2023) Immunizations Name Administration Dates Next Due COVID-19 mRNA, LNP-s, No Pre serve, 2-Dose Series (Pfizer) 04/03/2022,08/22/2021,02/03/2021,01/13 Covid-19, Mrna, Lnp-s, Pf, B ivalent, 30 Mcg, IM, 12 yrs and above (Pfizer) 10/23/2022 Pneumococcal Conjugate Vacc, 13 Valent (Prevnar) 10/26/2016 Pneumococcal Polysaccharide PPV23 (Pneumovax) 02/01/2014 SEASONAL INFLUENZA, PF, 6 M & Above, IM , (FLULAVAL or FLUZONE) 08/13/2020,10/21/2018,09/02/2017 Seasonal Influenza, Quadriva lent Hd (Fluzone [...] on file documented as of this encounter Plan of Treatment Upcoming Encounters Date Type Specialty Care Team Description 08/18/2023 Office Visit Internal Medicine Marlen Sommers MD [address] [facility] [place] [address] 12/01/2023 Imaging Radiology 12/23/2023 Office Visit Internal Medicine Marlen Sommers MD [address] [facility] [place], [place] [address] 01/17/2024 Office Visit Rheumatology Quinten Tapia MD [address] [facility] [place], [place] [address] Pending Results Name Type Priority Associated Diagnoses Date /Time CBC Lab Routine Periumbilical abdominal pain 08/17/2023 9:05 AM EDT COMPREHENSIVE METABOLIC PANEL Lab Routine Periumbilical abdominal pain 08/17/2023 9:05 AM EDT LIPASE Lab Routine Periumbilical abdominal pain 08/17/2023 9:05 AM EDT Scheduled Procedures Name Priority Associated Diagnoses Date/Ti me COLONOSCOPY FLEXIBLE PROXIMA L DIAGNOSTIC Recall Tubulovillous adenoma of colon Health Maintenance Due Date Last Done Comments DTaP,Tdap,and Td Vaccines (2 - Td or Tdap) 08/03/2021 08/03/2011 Mammogram 11/28/2022 11/28/2021, 12/2019, 11/02/2018, Additional history exists *BISPHONATE OR OTHER ACCEPTABLE MEDICATION NEEDED FOR OSTEOPOROSIS (REFER TO SMARTSET #1146) 12/19/2022 COVID-19 Vaccine ( season) 2023 10/23/2022, 04/03/2022, 08/22/2021, Additional history exists Influenza Vaccine (FLU shot) (#1) 2023 10/23/2022, [...] D LEVEL ONCE IN A LIFETIME-USE SMARTSET# 41660 Completed 06/05/2022, 12/16/2011 GARDASIL-HPV IMMUNIZATION SERIES Aged Out No longer eligible based on patient's age to complete this topic Hepatitis B Aged Out No longer eligi ble based on patient's age to complete this topic MENINGOCOCCAL (MENACTRA/MENVEO) Aged Out No longer eligible based on patient's age to complete this topic documented as of this encounter Medical Devices Implanted Type Area Home Care Scheduler Device Identifier Shelf Expiration Date Model / Serial / Lot Envista Hydrophobic Acrylic Toric Intraocular Lens Toric Implanted:Qty: 1 on 01/13/2022 by Arnoldo Milner MD at OR [facility] Left: Eye [employer] LOMB 01/13/2024 [id number] / [id number] / [id number] Toric 17.5 Implanted:Qty: 1 on 01/27/2022 by Arnoldo Milner MD at OR [facility] Right: Eye 02/12/2022 [id number] / [id number] / documented as of this encounter Visit Diagnoses Diagnosis Periumbilical abdominal pain Abdominal pain, periumbilic documented in this encounter Care Teams Concrete Boom Pump Operator Relationship Specialty Start Date End Date Marlen Sommers MD [address] [place] [address] PCP - General Internal Medicine 12/10/11 documented as of this encounter
--- OUTSIDE RECORDS SUMMARY | 2023-12-08 03:14 | External Medical Summary | Summary of Care ---
Author Name Unknown Organization [facility] Address [address] [place] [address] Phone [phone] Care Team Providers Care Supervisor Winding Department Name Role Phone Marlen Sommers MD Primary Care Provider [phone] Encounter Details Date Type Department Care Team Description 07/06/2023 Orders Only Outcomes Research Department [address] [place] [address] Tete Jiménez CHRA [facility] Research Other*[id number] Allergies Active Allergy Reactions Severity Noted Date Comments Lisinopril Cough 11/09/2011 documented as of this encounter (statuses as of 07/06/2023) Medications Medication Sig Dispensed Refills Start Date [...] 10/21/2018 Active Benefiber On The GO Oral PowderIndications:O ther constipation Daily on days when no miralax 0 01/21/2021 Active Loratadine 10 MG Oral Tablet (Claritin)Indicatio ns:Post-nasal drip Take by mouth 1 Tablet before bedtime. x1-2 wks then as needed-otc. 1 Tablet 0 01/08/2022 Active Additional Information Patient not taking.Reported on 06/17/2023 Pravastatin Sodium 20 MG Oral Tablet (Pravachol) TAKE ONE TABLET BY MOUTH EVERY DAY 90 Tablet 2 06/03/2023 06/02/2024 Active Venlafaxine HCl ER 150 MG Oral Capsule Extended Release 24 Hour (Effexor XR)Indications:Depr essive disorder TAKE ONE CAPSULE BY MOUTH EVERY DAY - DO NOT CUT, CRUSH OR CHEW 90 Capsule 3 06/11/2023 06/10/2024 Active hydroCHLOROthiazide 12.5 MG Oral Capsule (Hydrodiuril)Indica tions:HTN, goal below 140/90 TAKE ONE CAPSULE BY MOUTH EVERY DAY 90 Capsule 3 06/11/2023 06/10/2024 Active amLODIPine Besylate 5 MG Oral Tablet (Norvasc)Indication s:HTN, goal below 140/90 TAKE ONE TABLET BY MOUTH EVERY DAY 90 Tablet 3 06/11/2023 06/10/2024 Active Metoprolol Succinate ER 25 MG Oral Tablet Extended Release 24 Hour (toPROL XL)Indications:HTN, goal below 140/90 TAKE ONE TABLET BY MOUTH EVERY MORNING 90 Tablet 3 06/12/2023 06/11/2024 Active Venlafaxine HCl ER 37.5 MG Oral Capsule Extended Release 24 Hour (Effexor XR)Indications:Curr ent mild episode of major depressive disorder without prior episode (HCC) Take 1 Capsule by mouth in the morning. Along with 150 mg . Do not cut, crush or chew. 90 Capsule 3 06/17/2023 Active documented as of this encounter (statuses as of 07/06/2023) Active Problems Problem Noted Date Other constipation 05/25/2021 Age-related osteoporosis without current pathological fracture 11/22/2020 Advance directive on file 04/29/2015 Hyperlipidemia with target LDL less than 130 12/11/2011 Overview: ICD-10 update of inactive term HTN, goal below 140/90 Current mild episode of major depressive disorder without prior episode documented as of this encounter (statuses as of 07/06/2023) Resolved Problems Problem Noted Date Resolved Date Impaired fasting glucose 02/01/2014 018 Osteoporosis 03/11/2013 03/30/2013 documented as of this encounter (statuses as of 07/06/2023) Immunizations Name Administration Dates Next Due COVID-19 mRNA, LNP-s, No Pre serve, 2-Dose Series (D[place]choo) 04/03/2022,08/22/2021,02/03/2021,01/13 Covid-19, Mrna, Lnp-s, Pf, B ivalent, [...] Marlen Sommers MD [address] [place] [address] [address] 12/01/2023 Imaging Radiology 12/23/2023 Office Visit Internal Medicine Marlen Sommers MD [address] [address] 01/17/2024 Office Visit Rheumatology Quinten Tapia MD [address] [facility], [place] [address] Scheduled Orders Name Type Priority Associated Diagnoses Orde r Schedule MYCODE SUBSEQUENT ADULT Lab Routine [facility] Research Other*[id number] Every 6 Months for 2 Occurrences starting 07/06/2023 until 07/25/2024 Scheduled Procedures Name Priority Associated Diagnoses Date/Ti [...] D LEVEL ONCE IN A LIFETIME-USE SMARTSET# [id number] Completed 06/05/2022, 12/16/2011 COVID-19 Vaccine Completed 10/23/2022, [...] this encounter Medical Devices Implanted Type Area Computer Numerical Control Programmer Device Identifier Shelf Expiration Date Model / Serial / Lot Envista Hydrophobic Acrylic Toric Intraocular Lens Toric Implanted:Qty: 1 on 01/13/2022 by Arnoldo Milner MD at OR [facility] Left: Eye [employer]OM[employer] 01/13/2024 [id number] / [id number] / [id number] Toric 17.5 Implanted:Qty: 1 on 01/27/2022 by Arnoldo Milner MD at OR [facility] Right: Eye 02/12/2022 [id number] / [id number] / documented as of this encounter Visit Diagnoses Diagnosis [facility] Research Other*[id number] documented in this encounter Care Teams Supervisor Winding Department Relationship Specialty Start Date End Date Marlen Sommers MD [address] [place] [id number] PCP - General Internal Medicine 12/10/11 documented as of this encounter
--- OUTSIDE RECORDS SUMMARY | 2023-12-08 03:14 | External Medical Summary | Summary of Care ---
Author Name Unknown Organization [facility] Address [address] [place] [address] Phone [phone] Care Team Providers Care Silversmith Apprentice Name Role Phone Marlen Sommers MD Primary Care Provider [phone] Reason for Visit * Reason Comments Warts Patient presents for wart freezing on multiple fingers. Encounter Details Date Type Department Care Team Description 08/18/2023 Office Visit General Internal Medicine [facility] [address] [place] [address] Marlen Sommers MD [address] [place] [address] Other viral warts*; Periumbilical abdominal pain; Gastroesophageal reflux disease without esophagitis; Other constipation; HTN, goal below 140/90 Allergies Active Allergy Reactions Severity Noted Date Comments Lisinopril Cough 11/09/2011 documented as of this encounter (statuses as of 08/18/2023) Medications Medication Sig Dispensed Refills Start Date [...] as of this encounter (statuses as of 08/18/2023) Active Problems Problem Noted Date Gastroesophageal reflux disease without esophagitis 08/18/2023 Other constipation 05/25/2021 Age-related osteoporosis without current pathological fracture 11/22/2020 Advance directive on file 04/29/2015 Hyperlipidemia with target LDL less than 130 12/11/2011 Overview: ICD-10 update of inactive term HTN, goal below 140/90 Current mild episode of major depressive disorder without prior episode documented as of this encounter (statuses as of 08/18/2023) Resolved Problems Problem Noted Date Resolved Date Impaired fasting glucose 02/01/2014 018 Osteoporosis 03/11/2013 03/30/2013 documented as of this encounter (statuses as of 08/18/2023) Immunizations Name Administration Dates Next Due COVID-19 [...] Sign Reading Time Taken Comments Blood Pressure 122/76 08/18/2023 12:10 PM EDT Pulse 67 08/18/2023 12:10 PM EDT Temperature 36.8 C (98.3 F) 08/18/2023 12:10 PM E DT Respiratory Rate - - Oxygen Saturation 93% 08/18/2023 12:10 PM EDT Inhaled Oxygen Concentration - - Weight 62.8 kg (138 lb 8 oz) 08/18/2023 12:10 PM EDT Height - - Body Mass Index 24.53 06/17/2023 9:34 AM EDT documented in this encounter Progress Notes * Marlen Sommers MD - 08/18/2023 12:19 PM EDT Images from the original note were not included. History of Present Illness Dawna Diamond is a 72 year old female that presents for Warts (Patient presents for wart freezing on multiple fingers.) 72 YOF with PMH of HTN, hyperlipidemia, derpession presents here for wart freezing Acute concern :- -wart has been a little bit of smaller specially in the left pointer finger nail area. Others can'ttell -since last seen started taking omeprazole every day which eventually helped pain. Bowel movement been regular -had abdominal pain 2 weeks ago which lasted for an hour, was central around umbilical area. Some nausea but no vomiting, fever chills. Interimmedical history : As above Routine labs : Reviewed and stable with nothing acute Routine HM : Has appointment for COVID booster and flu shot next week Chronic medical problem: reviewed and stable Physical Exam Vitals: 08/18/23 1210 Temp: 36.8 C (98.3 F) Pulse: 67 SpO2: 93% BP: 122/76 Physical Exam Constitutional: General: She is not in acute distress. Appearance: Normal appearance. She is normal weight. HENT: Right Ear: Tympanic membrane normal. Left Ear: Tympanic membrane normal. Abdominal: General: There is no distension. Tenderness: There is no abdominal tenderness. Skin: Findings: Lesion (Varicose lesions 2 in each hand, 3 of them periungual area, 1st scrapped with scalpel and then for frozen with cryotherapy after consent was obtained) present. No rash. Neurological: Mental Status: She is alert. I have reviewed the following results: Lipase, CMP, and CBC A ''time out'' was initiated by myself prior to this procedure. The patient was identified by name and date of . The procedure matches written consent, and correct site identified. Correct positioning (as applicable). There is availability of necessary equipment. Pre-procedure checklist was completed. Patient tolerated procedure and area of procedure as described on exam section Assessment and Plan Other viral warts - BENIGN LESION DESTRUCTION, UP TO 14 LESIONS Periumbilical abdominal pain Could be muscular or gas pain Discussed to follow clinically and keep an eye on it. Patient verbalized understanding. I asked herto call back if it gets worse Gastroesophageal reflux disease without esophagitis Continue omeprazole every day Other constipation Stable Continue current treatment as directed HTN, goal below 140/90 Wrap-Up Time: I spent a total of 20-29 minutes (exact time 25 mins) on the date of service in preparation, delivery, and documentation of the care provided to Dawna Diamond excluding any time spent in the performance of separately billed services. documented in this encounter Nursing Notes * Yissel Zavaleta LPN - 08/18/2023 12:10 PM EDT Chief Complaint Patient presents with Warts Patient presents for wart freezing on multiple fingers. documented in this encounter Plan of Treatment Upcoming Encounters Date Type Specialty Care Team Description 12/01/2023 Imaging Radiology 12/23/2023 Office Visit Internal Medicine Marlen Sommers MD [address] [place] [address] 01/17/2024 Office Visit Rheumatology Quinten Tapia MD [address] [facility] [place], [place] [address] Scheduled Orders Name Type Priority Associated Diagnoses Orde r Schedule BENIGN LESION DESTRUCTION, UP TO 14 LESIONS Procedures Routine Other viral warts Ordered: 08/18/2023 Scheduled Procedures Name Priority Associated Diagnoses Date/Ti me COLONOSCOPY FLEXIBLE PROXIMA L DIAGNOSTIC Recall Tubulovillous adenoma of colon Health Maintenance Due Date Last Done Comments DTaP,Tdap,and Td Vaccines (2 - Td or Tdap) 08/03/2021 08/03/2011 Mammogram 11/28/2022 11/28/2021, 12/2019, 11/02/2018, Additional history exists *BISPHONATE OR OTHER ACCEPTABLE MEDICATION NEEDED FOR OSTEOPOROSIS (REFER TO SMARTSET #1146) 12/19/2022 COVID-19 Vaccine (2022- season) 2023 10/23/2022, 04/03/2022, 08/22/2021, Additional history exists Influenza Vaccine (FLU shot) (#1) 2023 10/23/2022, 08/13/2020, 11/02/2019, Additional history exists Depression Screening 12/17/2023 12/17/2022 DXA Scan 01/07/2024 01/07/2022, 06/15, 05/28/2015, Additional history exists GFR 08/17/2024 08/17/2023, 05/16, 12/11/2022, Additional history exists Albumin/Creatinine Ratio 06/11/2025 06/11/2022 COLONOSCOPY-EVERY 5 YRS AGES 18-100 05/14/2026 05/14/2021, 05/14/2021, 11/28/2015, Additional history exists Lipid Panel 06/11/2028 06/11/2023, 11/16, 06/05/2022, Additional history exists Pneumococcal Vaccine: 65+ Years Completed 10/26/2016, 02/01/2014 Zoster Vaccines Completed 05/20/2021, 11/15, 08/04/2013 VITAMIN D LEVEL ONCE IN A LIFETIME-USE SMARTSET# 25553 Completed 06/05/2022, 12/16/2011 GARDASIL-HPV IMMUNIZATION SERIES Aged Out No longer eligible based on patient's age to complete this topic Hepatitis B Aged Out No longer eligi ble based on patient's age to complete this topic MENINGOCOCCAL (MENACTRA/MENVEO) Aged Out No longer eligible based on patient's age to complete this topic documented as of this encounter Medical Devices Implanted Type Area Mcat Instructor Device Identifier Shelf Expiration Date Model / Serial / Lot Envista Hydrophobic Acrylic Toric Intraocular Lens Toric Implanted:Qty: 1 on 01/13/2022 by Arnoldo Milner MD at OR [facility] Left: Eye [employer] LOM[employer] 01/13/2024 [id number] / [id number] / [id number] Toric 17.5 Implanted:Qty: 1 on 01/27/2022 by Arnoldo Milner MD at OR [facility] Right: Eye 02/12/2022 [id number] / [id number] / documented as of this encounter Visit Diagnoses Diagnosis Other viral warts- Primary Periumbilical abdominal pain Abdominal pain, periumbilic Gastroesophageal reflux disease without esophagitis Esophageal reflux Other constipation HTN, goal below 140/90 Unspecified essential hypertension documented in this encounter Care Teams Silversmith Apprentice Relationship Specialty Start Date End Date Marlen Sommesr MD [address] [place] [address] PCP - General Internal Medicine 12/10/11 documented as of this encounter
--- OUTSIDE RECORDS SUMMARY | 2023-12-08 03:14 | External Medical Summary ---
Author Name Unknown Address Unknown Organization [id number]:LABORATORY [facility] [place] - [address] [place] [address] Laboratory Report Ordering Provider Test Date Status SALVADOR VILLALTA 08/17/2023 09:05:58 Final Observation Date Value Abnormality Reference (Units ) Status Lipase 08/17/2023 09:05:58 33 13-60 (U/L ) Final Performing Location LABORATORY [facility] - [address] [place] [address]
--- OUTSIDE RECORDS SUMMARY | 2023-12-08 03:15 | External Medical Summary ---
Author Name Unknown Address Unknown Organization [id number]:[facility]ORY [facility] - [address] [place] [address] Laboratory Report Ordering Provider Test Date Status SALVADOR VILLALTA 06/11/2023 07:39:43 Final Observation Date Value Abnormality Reference (Units ) Status BUN 06/11/2023 07:39:43 18 6-20 (mg/dL) Final Creatinine 06/11/2023 07:39:43 1.0 0.5-1.0 (mg/dL) Final Glomerular filtration rate/1.73 sq M.predicted [Volume Rate/Area] in Serum, Plasma or Blood by Creatinine-based formula (CKD-EPI) 06/11/2023 07:39:43 61 >=60 (mL/min) Final eGFR is calculated based on the CKD-EPI 2020 equation SODIUM 06/11/2023 07:39:43 138 135-146 (m mol/L) Final Potassium 06/11/2023 07:39:43 4.6 3.5-5.1 (m mol/L) Final Cl 06/11/2023 07:39:43 101 98-107 (mm ol/L) Final CO2 06/11/2023 07:39:43 27 22-32 (mmo l/L) Final Anion gap 06/11/2023 07:39:43 10 7-15 (mmol /L) Final Glucose 06/11/2023 07:39:43 98 70-120 (mg /dL) Final Albumin 06/11/2023 07:39:43 4.6 3.8-5.0 (g /dL) Final AST (Aspartate aminotransferase) 06/11/2023 07:39:43 21 10-35 (U/L) Final Alk Phos 06/11/2023 07:39:43 95 35-130 (U/ L) Final Bilirubin, Total 06/11/2023 07:39:43 0.4 <=1 .2 (mg/dL) Final Calcium 06/11/2023 07:39:43 9.5 8.4-10.2 ( mg/dL) Final Protein 06/11/2023 07:39:43 6.5 6.0-8.3 (g /dL) Final ALT (Alanine aminotransferase) 06/11/2023 07:39:43 16 10-35 (U/L) Final Performing Location [facility] [address] [place] [address]
--- OUTSIDE RECORDS SUMMARY | 2023-12-08 03:15 | External Medical Summary ---
Author Name Unknown Address Unknown Organization [id number]:LABORATORY [facility] [place] - [address] [place] [address] Laboratory Report Ordering Provider Test Date Status SALVADOR VILLALTA 06/11/2023 07:39:43 Final Observation Date Value Abnormality Reference (Units ) Status HbA1C 06/11/2023 07:39:43 5.8 Above high normal 4. 0-5.6 (%) Final The use of HbA1c to monitor glycemic status is based on normal hemoglobin and HbA composition. This test should not be used in patients with abnormal hemoglobin that affects the half life of the red blood cell or the in vivo glycation rates. Glucose, estimated average 06/11/2023 07:39:43 120 <126 (mg/dL) Final Performing Location LABORATORY [facility] [place] - [address] [place] [address]
--- OUTSIDE RECORDS SUMMARY | 2023-12-08 03:15 | External Medical Summary | Summary of Care ---
Author Name Unknown Organization [facility] Address [address] [place] [address] Phone [phone] Care Team Providers Care Senior Director Creative Services Name Role Phone Marlen Sommers MD Primary Care Provider [phone] Reason for Visit * Reason Comments Outpatient Testing Encounter Details Date Type Department Care Team Description 06/11/2023 Laboratory Laboratory [facility] [place] [address] [place] [address] [facility] [address] [place] [address] HTN, goal below 140/90; Impaired fasting glucose; Hyperlipidemia with target LDL less than 130 Allergies Active Allergy Reactions Severity Noted Date Comments Lisinopril Cough 11/09/2011 documented as of this encounter (statuses as of 06/11/2023) Medications Medication Sig Dispensed Refills Start Date [...] or chew. 90 Capsule 3 05/03/2023 Active Metoprolol Succinate ER 25 MG Oral Tablet Extended Release 24 Hour (toPROL XL)Indications:HTN, goal below 140/90 TAKE ONE TABLET BY MOUTH EVERY MORNING 90 Tablet 3 06/11/2022 06/11/2023 Active Pravastatin Sodium 20 MG Oral Tablet (Pravachol) TAKE ONE TABLET BY MOUTH EVERY DAY 90 Tablet 2 06/03/2023 06/02/2024 Active documented as of this encounter (statuses as of 06/11/2023) Active Problems Problem Noted Date Other constipation 05/25/2021 Age-related osteoporosis without current pathological fracture 11/22/2020 Advance directive on file 04/29/2015 Hyperlipidemia with target LDL less than 130 12/11/2011 Overview: ICD-10 update of inactive term HTN, goal below 140/90 Current mild episode of major depressive disorder without prior episode documented as of this encounter (statuses as of 06/11/2023) Resolved Problems Problem Noted Date Resolved Date Impaired fasting glucose 02/01/2014 018 Osteoporosis 03/11/2013 03/30/2013 documented as of this encounter (statuses as of 06/11/2023) Immunizations Name Administration Dates Next Due COVID-19 mRNA, LNP-s, No Pre serve, 2-Dose Series (Foxtrot) 04/03/2022,08/22/2021,02/03/2021,01/13 Covid-19, Mrna, Lnp-s, Pf, B ivalent, 30 Mcg, IM, 12 yrs and above (Foxtrot) 10/23/2022 Pneumococcal Conjugate Vacc, 13 Valent (Prevnar) [...] Visit Internal Medicine Marlen Sommers MD [address] [facility], [place] [address] Pending Results Name Type Priority Associated Diagnoses Date /Time HEMOGLOBIN A1C Lab Routine HTN, goal below 140/90 Impaired fasting glucose 06/11/2023 7:39 AM EDT COMPREHENSIVE METABOLIC PANEL Lab Routine Hyperlipidemia with target LDL less than 130 06/11/2023 7:39 AM EDT LIPID PANEL WITH DIRECT LDL IF TG IS HIGH Lab Routine Hyperlipidemia with target LDL less than 130 06/11/2023 7:39 AM EDT Scheduled Procedures Name Priority Associated [...] 2023 10/23/2022, 08/13/2020, 11/02/2019, Additional history exists GFR 12/11/2023 12/11/2022, 05/16, 11/19/2021, Additional history exists Depression Screening, Annual for Pts 12 and Over 12/17/2023 12/17/2022 DXA Scan 01/07/2024 01/07/2022, 06/15, 05/28/2015, Additional history exists Albumin/Creatinine Ratio 06/11/2025 06/11/2022 COLONOSCOPY-EVERY 5 YRS AGES 18-100 05/14/2026 05/14/2021, 05/14/2021, 11/28/2015, Additional history exists Lipid Panel 12/11/2027 12/11/2022, 05/16, 11/19/2021, Additional history exists Pneumococcal Vaccine: 65+ Years Completed 10/26/2016, 02/01/2014 Zoster Vaccines Completed 05/20/2021, 11/15, 08/04/2013 VITAMIN D LEVEL ONCE IN A LIFETIME-USE SMARTSET# [id number] Completed 06/05/2022, 12/16/2011 COVID-19 Vaccine Completed 10/23/2022, [...] this encounter Medical Devices Implanted Type Area Warehouse Shipper Device Identifier Shelf Expiration Date Model / Serial / Lot Envista Hydrophobic Acrylic Toric Intraocular Lens Toric Implanted:Qty: 1 on 01/13/2022 by Arnoldo Milner MD at OR [facility] Left: Eye [employer] LOM[employer] 01/13/2024 [id number] / [id number] / [id number] Toric 17.5 Implanted:Qty: 1 on 01/27/2022 by Arnoldo Milner MD at OR [facility] Right: Eye 02/12/2022 [id number] / [id number] / documented as of this encounter Visit Diagnoses Diagnosis HTN, goal below 140/90 Unspecified essential hypertension Impaired fasting glucose Hyperlipidemia with target LDL less than 130 Other and unspecified hyperlipidemia documented in this encounter Care Teams Senior Director Creative Services Relationship Specialty Start Date End Date Marlen Sommers MD [address] [facility], [place] [id number] PCP - General Internal Medicine 12/10/11 documented as of this encounter
--- OUTSIDE RECORDS SUMMARY | 2023-12-08 03:15 | External Medical Summary ---
Author Name Unknown Address Unknown Organization [id number]:LABORATORY [facility] [place] - [address] [facility] [address] Laboratory Report Ordering Provider Test Date Status MORIS VILLALTAALI 06/11/2023 07:39:43 Final Observation Date Value Abnormality Reference (Units ) Status Triglyceride 06/11/2023 07:39:43 54 <=174 ( mg/dL) Final Triglyceride Reference Range s (mg/dL):
<150 Acceptable
150-174 Borderline high
175-499 High
>=500 Very high Cholesterol 06/11/2023 07:39:43 184 <200 (mg /dL) Final Total Cholesterol Reference Ranges (mg/dL):
<200 Desirable
200-239 Borderline high
>=240 High HDL 06/11/2023 07:39:43 82 >49 (mg/dL ) Final HDL Cholesterol Reference Ra nges (mg/dL):
>=60 High (Desirable)
<50 Low (Undesirable) For Females
<40 Low (Undesirable) For Males NON-HDL CHOLESTEROL 06/11/2023 07:39:43 102 <=159 (mg/dL) Final Non-HDL Cholesterol Referenc e Range (mg/dL):
<100 Target level for high risk ASCVD patient
<130 Optimal for general population
130-159 Near optimal for general population
160-189 Borderline High
190-219 High
>=220 Very High LDL, (calculated) 06/11/2023 07:39:43 91 <= 129 (mg/dL) Final LDL Cholesterol Reference Ra nges (mg/dL):
<70 Target level for high risk ASCVD patient
<100 Optimal for general population
100-129 Near optimal for general population
130-159 Borderline high
160-189 High
>=190 Very high Performing Location LABORATORY [facility] [place] - [address] [facility] [address]
--- OUTSIDE RECORDS SUMMARY | 2023-12-08 03:15 | External Medical Summary | Summary of Care ---
Author Name Unknown Organization [facility] Address [address] [place] [address] Phone [phone] Care Team Providers Care Core Maker Name Role Phone Ambar Sommers MD Primary Care Provider [phone] Reason for Visit * Reason Comments Medication Refill Encounter Details Date Type Department Care Team Description 06/10/2023 Refill General Internal Medicine [facility] [address] [facility] [place], [place] [id number] Ambar Sommers MD [address] [place], [place] [id number] Depressive disorder; HTN, goal below 140/90 Allergies Active Allergy [...] DAY 90 Tablet 3 06/11/2023 06/10/2024 Active amLODIPine Besylate 5 MG Oral Tablet (Norvasc)Indicatio ns:HTN, goal below 140/90 TAKE ONE TABLET BY MOUTH EVERY DAY 90 Tablet 3 06/09/2022 06/10/2023 Discontinued (Refill) hydroCHLOROthiazid e 12.5 MG Oral Capsule (Hydrodiuril)Indic ations:HTN, goal below 140/90 TAKE ONE CAPSULE BY MOUTH EVERY DAY 90 Capsule 3 06/09/2022 06/10/2023 Discontinued (Refill) Venlafaxine HCl ER 150 MG Oral Capsule Extended Release 24 Hour (Effexor XR)Indications:Dep ressive disorder TAKE ONE CAPSULE BY MOUTH EVERY DAY - DO NOT CUT, CRUSH OR CHEW 90 Capsule 3 06/09/2022 06/10/2023 Discontinued (Refill) documented as of this encounter [...] encounter Miscellaneous Notes * Telephone Encounter - Thalia Don RPh - 06/11/2023 9:23 AM EDTSigned Prescriptions: Disp Refills Venlafaxine HCl ER 150 MG Oral Capsule Ext*90 Cap*3 Sig: TAKE ONE CAPSULE BY MOUTH EVERY DAY - DO NOT CUT, CRUSH OR CHEW Authorizing Provider: AMBAR SOMMERS Ordering User: THALIA DON hydroCHLOROthiazide 12.5 MG Oral Capsule (*90 Cap*3 Sig: TAKE ONE CAPSULE BY MOUTH EVERY DAY Authorizing Provider: AMBAR SOMMERS Or mecca User: THALIA DON amLODIPine Besylate 5 MG Oral Tablet (Norv*90 Tab*3 Sig: TAKE ONE TABLET BY MOUTH EVERY DAY Authorizing Provider: AMBAR SOMMERS Ordering User: THALIA DON * Telephone Encounter - Interconnect User - 06/10/2023 9:30 AM EDTPending Prescriptions: Disp Refills Venlafaxine HCl ER 150 MG Oral Capsule Ext*90 Cap*3 Sig: TAKE ONE CAPSULE BY MOUTH EVERY DAY - DO NOT CUT, CRUSH OR CHEW hydroCHLOROthiazide 12.5 MG Oral Capsule (*90 Cap*3 Sig: TAKE ONE CAPSULE BY MOUTH EVERY DAY * Telephone Encounter - Interconnect User - 06/10/2023 9:30 AM EDTPending Prescriptions: Disp Refills Venlafaxine HCl ER 150 MG Oral Capsule Ext*90 Cap*3 Sig: TAKE ONE CAPSULE BY MOUTH EVERY DAY - DO NOT CUT, CRUSH OR CHEW hydroCHLOROthiazide 12.5 MG Oral Capsule (*90 Cap*3 Sig: TAKE ONE CAPSULE BY MOUTH EVERY DAY amLODIPine Besylate 5 MG Oral Tablet (Norv*90 Tab*3 Sig: TAKE ONE TABLET BY MOUTH EVERY DAY documented in this encounter Plan of Treatment Upcoming Encounters Date Type Specialty Care Team Description 06/17/2023 Office Visit Internal Medicine Ambar Sommers MD [address] [place] [phone] Scheduled Procedures Name Priority Associated Diagnoses Date/Ti [...] D LEVEL ONCE IN A LIFETIME-USE SMARTSET# [id number] Completed 06/05/2022, 12/16/2011 COVID-19 Vaccine Completed 10/23/2022, [...] this encounter Medical Devices Implanted Type Area Piano Tuner Device Identifier Shelf Expiration Date Model / Serial / Lot Envista Hydrophobic Acrylic Toric Intraocular Lens Toric Implanted:Qty: 1 on 01/13/2022 by Arnoldo Milner MD at OR [facility] Left: Eye [employer] 01/13/2024 [id number] / [id number] / [id number] Toric 17.5 Implanted:Qty: 1 on 01/27/2022 by Arnoldo Milner MD at OR [facility] Right: Eye 02/12/2022 [id number] / [id number] / documented as of this encounter Visit Diagnoses Diagnosis Depressive disorder Depressive disorder, not elsewhere classified HTN, goal below 140/90 Unspecified essential hypertension documented in this encounter Care Teams Core Maker Relationship Specialty Start Date End Date Ambar Sommers MD [address] [place] [place] [address] PCP - General Internal Medicine 12/10/11 documented as of this encounter
[2023-12-08] MEDS ORDERED: TAMSULOSIN HCL 0.4 MG CAP PO ONE (03:51)
--- NOTE | 2023-12-08 03:54 | Urology Consultation ---
Date of Consultation December 08, 2023 Assessment & Plan (1) Renal colic: I discussed with the treating emergency room physician and the patient is being admitted on the hospitalist service. We recommend proceeding as follows: Provide analgesics Provide antiemetics Provide IV fluid for hydration Initiate Flomax for expulsive therapy Follow serial labs Implement n.p.o. status At the present time the patient is noted to be afebrile and normotensive without tachycardia. She also does not exhibit leukocytosis or acute kidney injury and does not have any evidence of urinary tract infection or sepsis. I therefore think a trial of conservative treatment is a reasonable approach at this time. However, due to the size of the patient's kidney stone and may be less likely she will pass this stone even with therapy as outlined above. We therefore keep her n.p.o. for the present time as noted above and she will be reevaluated the morning of 12/08/2023 and a determination was made if patient require cystoscopic intervention. Additional recommendations be forthcoming based on her clinical course as unfolds History of Present Illness Reason for Consultation: Nephrolithiasis History of Present Illness This is a 73-year-old female who presented the emergency department secondary to left-sided abdominal pain. Patient notes that she has been having some nonspe cific abdominal pain for several months and she states she was seen by her primary care team and treated for gastroesophageal reflux disease. Patient notes that yesterday the patient had some severe abdominal pain located on the left side of her abdomen. She did not really have much in the way of flank pain. She did have associated nausea with dry heaves but denies any fevers, shakes, or chills. Patient says she is not having any urinary difficulties specifically noting she is not having any dysuria, urinary frequency, or hematuria. Patient notes that she has never had kidney stones in the past. Since arrival to the hospital the patient has had labs and imaging which independent reviewed. The patient had a CT scan of the abdomen and pelvis that showed a 1.1 cm left ureteropelvic junction kidney stone causing moderate hydronephrosis. Labs include a CBC her white blood cell count, hemoglobin, hematocrit, platelet count were all within normal range. Chemistry profile showed sodium was 133 with a normal potassium. Her BUN and creatinine were both within normal range. The patient was noted to have cloudy appearing urine but it was negative for nitrites and negative for leukocyte Estrace. There is no pyuria or bacteria noted on this study. At the time of my interview she was resting comfortably in bed and she was no distress Allergies Allergy/AdvReac Type Severity Reaction Status Date / Time lisinopril AdvReac Intermediate Cough Verified 12/08/23 02:18 Home Medications Medication Instructions Recorded Confirmed Type amlodipine 5 mg tablet 5 mg PO DAILY 12/08/23 12/08/23 History aspirin 81 mg tablet,delayed 81 mg PO DAILY 12/08/23 12/08/23 History release calcium carbonate 600 mg-vitamin 1 tab PO BID 12/08/23 12/08/23 History D3 10 mcg (400 unit) tablet (Calcium 600 + D(3)) guar gum 1 tbsp PO DAILY 12/08/23 12/08/23 History hydrochlorothiazide 12.5 mg capsule 12.5 mg PO DAILY 12/08/23 12/08/23 History loratadine 10 mg tablet (Claritin) 10 mg PO DAILY PRN Congestion 12/08/23 12/08/23 History metoprolol succinate 25 mg 25 mg PO DAILY 12/08/23 12/08/23 History tablet,extended release 24 hr omega-3 fatty acids 1,000 mg 1,000 mg PO DAILY 12/08/23 12/08/23 History capsule pravastatin 20 mg tablet 20 mg PO DAILY 12/08/23 12/08/23 History venlafaxine 150 mg 150 mg PO DAILY 12/08/23 12/08/23 History capsule,extended release 24 hr venlafaxine 37.5 mg 37.5 mg PO DAILY 12/08/23 12/08/23 History capsule,extended release 24 hr Patient History Social History Smoking Status: Never smoker Preferred Language: Frisian Feels Safe at Home: Yes Review of Systems Constitutional: no fever and no chills Ear, Nose, Mouth, Throat: no ear pain Respiratory: no cough and no dyspnea Cardiovascular: no chest pain Gastrointestinal: + abdominal pain, + nausea and + vomitin g Genitourinary: no dysuria and no flank pain Musculoskeletal: no back pain Integumentary: no rash Neurologic: no localized weakness Physical Exam Constitutional: WD/WN, vitals as above Eyes: no conjunctival abnormality ENMT: Ears: no hearing impairment and no external ear abnormality Mouth: no oropharynx abnormality Neck: trachea midline Respiratory: normal respiratory effort; no respiratory distress and no labored breathing Cardiovascular: Rate/Rhythm: regular rate and regular rhythm Gastrointestinal (Abdomen): Abdomen is soft and nondistended. There is no rebound tenderness or guarding. There is no pain with palpation at the time of my exam Musculoskeletal: No calf tenderness Skin: no rashes Neurologic: moves all extremities Psychiatric: A+Ox3, euthymic affect Genitourinary: No CVA tenderness with percussion Results & Data Vital Signs (Past 12 Hours) Vital Signs Temp Pulse Pulse Resp BP BP Pulse Ox 12/08/23 02:49 75 20 135/75 97 12/08/23 00:55 36.4 C L 61 16 154/80 H 99 O2 Del Method 12/08/23 02:49 Room Air 12/08/23 00:55 Room Air PG Care Time/CCT Total # of Minutes Spent Total Time Spent with Patient: Total time spent is greater than 50% in coordination of care (as documented) at patient's floor/unit and/or counseling patient: Coding Level of Care Code 59048 INT INP/OBS CARE 3/75MIN Diagnoses Renal colic N23
--- NOTE | 2023-12-08 04:16 | History & Physical Report ---
Date of Service December 08, 2023 Assessment & Plan (1) Renal colic: Plan: 73-year-old female with past med history significant for hyperlipidemia, hypertension, constipation, GERD, osteoporosis, mild depression presents with the left lower abdominal pain and found to have 1.1 cm left ureteropelvic junction calculus causing moderate hydronephrosis. Left renal colic 1.1 cm left uteropelvic junction calculus causing moderate hydronephrosis No UTI or LURDES Hemodynamic stable Will keep her n.p.o. IV fluids IV morphine as needed IV antiemetics as needed Flomax Urology consulted and further recommendation as per urology Hypertension Continue metoprolol succinate and hydrochlorothiazide and amlodipine Will monitor Hyperlipidemia On statin Depression On venlafaxine DVT prophylaxis SCDs Disposition Admit to medical floor Full code History of Present Illness Chief Complaint: Left renal colic Primary Care Provider: Marlen Sommers MD 73-year-old female with past med history significant for hyperlipidemia, hypertension, constipation, GERD, osteoporosis, mild depression presents with the left lower abdominal pain and found to have 1.1 cm left ureteropelvic junction calculus causing moderate hydronephrosis. Patient states having left lower abdominal severe pain since yesterday afternoon. Associated with nausea and dry heaves. Was having chills and sweating. With the pain medication the pain is improved but she having some imbalance after the morphine. Denies any fever. No burning micturition. No hematuria. Somewhat constipated but had a normal bowel movement yesterday morning. Denies any chest pain or shortness of breath. No cough. No headache. No blurred visions. No earache no runny nose or no sore throat. Currently resting comfortably and hemodynamically stable. Past medical history. As mentioned above Past surgical history. Bilateral carpal tunnel surgery. Colonoscopy. Dilatation curettage. Removal of heel spur on left side. Bilateral cataracts. Tonsillectomy 2019. Left elbow fracture repair. Left femur head and neck repair. Social history. . No smoking. No alcohol use. No drug use. Family history. Mother had heart disorder. Ruptured AAA. Father had polio. Paternal grandfather had pancreatic cancer. Heart disorder. Paternal grandmother had Alzheimer's. Diabetes. Maternal grandfather had heart disorder. Maternal grandmother had diabetes. Heart disorder. Allergies Allergy/AdvReac Type Severity Reaction Status Date / Time lisinopril AdvReac Intermediate Cough Verified 12/08/23 02:18 Home Medications Medication Instructions Recorded Confirmed Type amlodipine 5 mg tablet 5 mg PO DAILY 12/08/23 12/08/23 History aspirin 81 mg tablet,delayed 81 mg PO DAILY 12/08/23 12/08/23 History release calcium carbonate 600 mg-vitamin 1 tab PO BID 12/08/23 12/08/23 History D3 10 mcg (400 unit) tablet (Calcium 600 + D(3)) guar gum 1 tbsp PO DAILY 12/08/23 12/08/23 History hydrochlorothiazide 12.5 mg capsule 12.5 mg PO DAILY 12/08/23 12/08/23 History loratadine 10 mg tablet (Claritin) 10 mg PO DAILY PRN Congestion 12/08/23 12/08/23 History metoprolol succinate 25 mg 25 mg PO DAILY 12/08/23 12/08/23 History tablet,extended release 24 hr omega-3 fatty acids 1,000 mg 1,000 mg PO DAILY 12/08/23 12/08/23 History capsule pravastatin 20 mg tablet 20 mg PO DAILY 12/08/23 12/08/23 History venlafaxine 150 mg 150 mg PO DAILY 12/08/23 12/08/23 History capsule,extended release 24 hr venlafaxine 37.5 mg 37.5 mg PO DAILY 12/08/23 12/08/23 History capsule,extended release 24 hr Past Med/Surg History Social History Smoking Status: Never smoker Hx Alcohol Use: Yes Alcohol type: beer, wine and hard liquor Hx Substance Use: No Preferred Language: Turkish Communication Ability: 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 Head- atraumatic Eyes- PERRL. ENT- oropharynx clear Neck- supple, no JVD. Lungs- clear to auscultation no wheezing or crackles. Heart- regular rhythm; no murmur, no gallop. Abdomen- normal bowel sounds, soft, nontender, no distension. Extremities- no pretibial edema, no erythema seen. Neuro- alert, oriented x 3; PERRL, no facial palsy; no dysarthria; moves extremities Skin- warm & dry Results & Data Results & Data Vital Signs (Past 12 Hours) Vital Signs Temp Pulse Pulse Resp BP BP Pulse Ox 12/08/23 02:49 75 20 135/75 97 12/08/23 00:55 36.4 C L 61 16 154/80 H 99 O2 Del Method 12/08/23 02:49 Room Air 12/08/23 00:55 Room Air Diagnostic Findings Laboratory Results WBC 9.69 K/ul (4.8-10.8) 12/08/23 01:04 RBC 4.82 M/uL (4.20-5.40) 12/08/23 01:04 Hgb 14.7 g/dl (12.0-16.0) 12/08/23 01:04 Hct 41.9 % (37.0-47.0) 12/08/23 01:04 MCV 86.9 fL (80.0-100.0) 12/08/23 01:04 MCH 30.5 pg (25.0-34.0) 12/08/23 01:04 MCHC 35.1 g/dL (32.0-36.0) 12/08/23 01:04 RDW Std Deviation 40.3 fL (36.4-46.3) 12/08/23 01:04 RDW Coeff of Gayatri 12.7 % (11.5-14.5) 12/08/23 01:04 Plt Count 267 K/uL (130-400) 12/08/23 01:04 MPV 10.1 fL (9.4-12.4) 12/08/23 01:04 Immature Gran % (Auto) 0.5 % 12/08/23 01:04 Neut % (Auto) 71.5 % 12/08/23 01:04 Lymph % (Auto) 20.0 % 12/08/23 01:04 [place] % (Auto) 7.5 % 12/08/23 01:04 Eos % (Auto) 0.3 % 12/08/23 01:04 Baso % (Auto) 0.2 % 12/08/23 01:04 Neut # (Auto) 6.92 K/uL (1.40-6.50) H 12/08/23 01:04 Lymph # (Auto) 1.94 K/uL (1.20-3.40) 12/08/23 01:04 [place] # (Auto) 0.73 K/uL (0.11-0.59) H 12/08/23 01:04 Eos # (Auto) 0.03 K/uL (0.00-0.50) 12/08/23 01:04 Baso # (Auto) 0.02 K/uL (0.00-0.20) 12/08/23 01:04 Immature Gran # (Auto) 0.05 K/uL (0.01-0.20) 12/08/23 01:04 Sodium 133 mmol/L (136-145) L 12/08/23 01:04 Potassium 3.6 mmol/L (3.5-5.1) 12/08/23 01:04 Chloride 98 mmol/L (98-107) 12/08/23 01:04 Carbon Dioxide 22 mmol/L (21-32) 12/08/23 01:04 Anion Gap 13 (3-11) H 12/08/23 01:04 BUN 18 mg/dl (6-23) 12/08/23 01:04 Creatinine 0.83 mg/dl (0.6-1.2) 12/08/23 01:04 Est Cr Clr Drug Dosing 52.4 ml/min 12/08/23 01:04 Est GFR ( Amer) 79.9 ml/min 12/08/23 01:04 Est GFR (Non-Af Amer) 69.0 ml/min 12/08/23 01:04 BUN/Creatinine Ratio 21.7 (10-20) H 12/08/23 01:04 Glucose 146 mg/dl (70-99(Fasting)) H 12/08/23 01:04 Calcium 10.0 mg/dl (8.6-10.3) 12/08/23 01:04 Total Bilirubin 0.6 mg/dl (0.2-1.0) 12/08/23 01:04 AST 22 U/L (13-39) 12/08/23 01:04 ALT 14 U/L (7-52) 12/08/23 01:04 Alkaline Phosphatase 80 U/L (34-104) 12/08/23 01:04 Total Protein 7.2 gm/dl (6.0-8.3) 12/08/23 01:04 Albumin 4.5 gm/dl (3.4-5.0) 12/08/23 01:04 Globulin 2.7 gm/dl (2.5-4.0) 12/08/23 01:04 Albumin/Globulin Ratio 1.7 (0.9-2) 12/08/23 01:04 Lipase 16 U/L (11-82) 12/08/23 01:04 Urine Color Yellow 12/08/23 02:32 Urine Appearance Cloudy (Clear) A 12/08/23 02:32 Urine pH 8.0 (4.5-7.5) H 12/08/23 02:32 Ur Specific [place] 1.011 (1.000-1.030) 12/08/23 02:32 Urine Protein Negative (Negative) 12/08/23 02:32 Urine Glucose (UA) Trace (Negative) H 12/08/23 02:32 Urine Ketones 1+ (Negative) H 12/08/23 02:32 Urine Blood 1+ (Negative) H 12/08/23 02:32 Urine Nitrite Negative (Negative) 12/08/23 02:32 Urine Bilirubin Negative (Negative) 12/08/23 02:32 Urine Urobilinogen Negative (Negative) 12/08/23 02:32 Ur Leukocyte Esterase Negative (Negative) 12/08/23 02:32 Urine WBC (Auto) 1-5 /hpf (0-5) 12/08/23 02:32 Urine RBC (Auto) 10-30 /hpf (0-4) H 12/08/23 02:32 U Hyaline Cast (Auto) 0 /lpf (0-5) 12/08/23 02:32 U Epithel Cells (Auto) 5-10 /lpf (0-5) H 12/08/23 02:32 Urine Bacteria (Auto) Negative (Negative) 12/08/23 02:32 Impressions Abdomen/Pelvis CT 12/08/23 01:59 Exam(s): CT ABDOMEN + PELVIS With Contrast IV Amt: 82 ML OPTIRAY 320 EXAM: CT Abdomen and Pelvis With Intravenous Contrast CLINICAL HISTORY: Reason for exam: llq abd pain. TECHNIQUE: Axial computed tomography images of the abdomen and pelvis with intravenous contrast. CTDI is 19.65 mGy and DLP is 840.79 mGy-cm. Automated exposure control was utilized for the study. A dose lowering technique was utilized adhering to the principles of ALARA. CONTRAST: Patient received 82 ML OPTIRAY 320 of IV contrast COMPARISON: No relevant prior studies available. FINDINGS: Lung bases: Unremarkable. No mass. No consolidation. ABDOMEN: Liver: Unremarkable. No mass. Gallbladder and bile ducts: Unremarkable. No calcified stones. No ductal dilation. Pancreas: Unremarkable. No mass. No ductal dilation. Spleen: Unremarkable. No splenomegaly. Adrenals: Unremarkable. No mass. Kidneys and ureters: 1.1 cm left ureteropelvic junction calculus causing moderate hydronephrosis. Stomach and bowel: Unremarkable. No obstruction. No mucosal thickening. PELVIS: Appendix: No findings to suggest acute appendicitis. Bladder: Unremarkable. No mass. Reproductive: Unremarkable as visualized. ABDOMEN and PELVIS: Intraperitoneal space: Unremarkable. No free air. No significant fluid collection. Bones/joints: No acute fracture. No dislocation. Soft tissues: Unremarkable. Vasculature: Unremarkable. No abdominal aortic aneurysm. Lymph nodes: Unremarkable. No enlarged lymph nodes. IMPRESSION: 1.1 cm left ureteropelvic junction calculus causing moderate hydronephrosis. Electronically signed by: Dewayne Fenton M.D. 12/08/23 03:02 AM Code Status & VTE Plan VTE Prophylaxis Plan VTE Prophylaxis will be ordered: Yes
[2023-12-08] MEDS ORDERED: MoRPHine SULFATE 4 MG/ML 1 ML CARP\\VIAL IV PRN (05:40)
[2023-12-08] MEDS ORDERED: ONDANSETRON INJ 2 MG/ML 2 ML VIAL IV PRN (05:40)
[2023-12-08] MEDS ORDERED: ACETAMINOPHEN 325 MG TAB PO PRN (05:40)
[2023-12-08] MEDS ORDERED: KETOROLAC TROMETHAMINE 15 MG/ML VIAL IV PRN (05:40)
[2023-12-08] MEDS ORDERED: LORATADINE 10 MG TAB PO PRN (05:40)
[2023-12-08] MEDS: SODIUM CHLORIDE 0.9% 1,000 ML IV SCH ×2 (06:13→17:09)
[2023-12-08] MEDS: hydroCHLOROthiazide 25 MG TAB PO SCH (08:23)
[2023-12-08] MEDS: VENLAFAXINE HCL XR 37.5 MG CAPXR PO SCH (08:24)
[2023-12-08] MEDS: PRAVASTATIN SOD 20 MG TAB PO SCH (08:25)
[2023-12-08] MEDS: VENLAFAXINE HCL XR 150 MG CAPXR PO SCH (08:25)
[2023-12-08] MEDS: amLODIPine BESYLATE 5 MG TAB PO SCH (09:43)
[2023-12-08] MEDS: METOPROLOL SUCC 25MG EXT REL TAB PO SCH (09:45)
[2023-12-08] MEDS: ASPIRIN 81 MG ECTAB PO SCH (09:45)
--- NOTE | 2023-12-08 10:13 | Urology Progress Note ---
Date of Service December 08, 2023 Assessment & Plan (1) Left ureteral stone: (2) Acute flank pain: Plan 73yo F admitted with severe left sided abdominal/flank pain. CT scan of the abdomen and pelvis on arrival demonstrated a 1.1 cm left ureteropelvic junction stone causing moderate hydronephrosis. Afebrile and hemodynamically stable. Labs show no leukocytosis and normal renal function. Urinalysis not suggestive of infection. We reviewed her CT findings showing a 1.1 cm obstructing left UPJ stone. Discussed stone passage rates given size and location. We discussed acute stone and pain management with cystoscopy and stent placement. Ureteral stents were discussed as well as postoperative issues and pain management. She is aware second procedure would be needed for stone treatment. Risks and benefits were discussed. All questions were answered. Patient elects to proceed with stent placement for pain management. Will plan to proceed to OR today for cystoscopy and left ureteral stent placement. Risks and benefits discussed as per consent. Continue supportive care and pain management as needed. Will cover with Ancef preoperatively. Keep NPO. Urology will follow. Admission and Anticipated Discharge Date Admission Date: December 08, 2023 Supervising Physician Co-Signing Physician Notes Discussed patient with ASHLEY. Agree with plan. Proceed to OR for ureteral stent placement Subjective Pt examined at bedside this AM. Awake, resting in bed on arrival. No acute distress. Has been NPO. Denies f/c/n/v. Pain currently managed with medication. Voiding without issue. Denies prior hx of stones. Review of Systems Constitutional: as per Subjective / HPI Genitourinary: as per Subjective / HPI Physical Exam Constitutional: no acute distress Respiratory: no respiratory distress and no labored breathing Neurologic: moves all extremities and awake Psychiatric: A+Ox3, euthymic affect Results & Data Vital Signs (Past 12 Hours) Vital Signs Temp Pulse Pulse Pulse Resp BP BP 12/08/23 07:45 36.4 C L 69 16 102/59 L 12/08/23 05:51 12/08/23 05:40 36.6 C 68 16 120/71 12/08/23 04:00 67 20 12/08/23 02:49 75 20 12/08/23 00:55 36.4 C L 61 16 154/80 H BP Pulse Ox O2 Del Method O2 Flow Rate 12/08/23 07:45 93 Room Air 12/08/23 05:51 Room Air 12/08/23 05:40 95 Room Air 12/08/23 04:00 105/67 97 Nasal Cannula 2 12/08/23 02:49 135/75 97 Room Air 12/08/23 00:55 99 Room Air PG Care Time/CCT Total # of Minutes Spent Total Time Spent with Patient: Total time spent is greater than 50% in coordination of care (as documented) at patient's floor/unit and/or counseling patient: Coding Level of Care Code None Diagnoses Left ureteral stone N20.1 Acute flank pain R10.9
[2023-12-08] MEDS ORDERED: ceFAZolin 2000MG 2,000 MG/15 ML SYR IV ONE (13:00)
--- NOTE | 2023-12-08 14:35 | Communication Note ---
Date of Service: December 08, 2023 Evaluated patient after admission. Patient states that she is much improved, denying any nausea or acute pain this morning. Imaging revealed 1.1 cm ureteropelvic calculus, causing hydronephrosis Labs reviewed, no LURDES or acute electrolyte changes VS stable Review Urology notes: OR today with left ureteral stent placement In interim, patient remains NPO, ancef per urology, will follow up post op. Formal PN to follow in am
[2023-12-08] MEDS ORDERED: LIDOCAINE 2% 2 ML VIAL/AMP(20MG/ML) INFIL ONE (15:12)
[2023-12-08] MEDS ORDERED: fentaNYL citrate PF 100 MCG/2 ML VIAL ONE (15:12)
[2023-12-08] MEDS ORDERED: PROPOFOL IV EMULSION 10 MG/ML 20 ML VIAL IV ONE (15:12)
--- NOTE | 2023-12-08 15:13 | Anesthesiology Consultation ---
Date of Service December 08, 2023 Assessment & Plan (1) Encounter for pre-operative examination: Chart Review Chart Review: Acceptable Risk for Surgery and Patient NOT seen in Pre Admission Testing Consults Requested none History Surgery Operation Date: 12/08/23 10:40 Proposed Procedures p Cystoscopy Left Retrograde Pyelogram and Stent Placement - Yoandy Montgomery MD Height/Weight Height: 5 ft 3 in Weight: 62.5 kg Allergies Allergy/AdvReac Type Severity Reaction Status Date / Time lisinopril AdvReac Intermediate Cough Verified 12/08/23 02:18 Medications Home Medications Medication Instructions Recorded Confirmed Last Taken amlodipine 5 mg tablet 5 mg PO DAILY 12/08/23 12/08/23 12/07/23 aspirin 81 mg tablet,delayed 81 mg PO DAILY 12/08/23 12/08/23 12/07/23 release calcium carbonate 600 mg-vitamin 1 tab PO BID 12/08/23 12/08/23 12/07/23 D3 10 mcg (400 unit) tablet (Calcium 600 + D(3)) guar gum 1 tbsp PO DAILY 12/08/23 12/08/23 12/07/23 hydrochlorothiazide 12.5 mg capsule 12.5 mg PO DAILY 12/08/23 12/08/23 12/07/23 loratadine 10 mg tablet (Claritin) 10 mg PO DAILY PRN Congestion 12/08/23 12/08/23 12/07/23 metoprolol succinate 25 mg 25 mg PO DAILY 12/08/23 12/08/23 12/07/23 tablet,extended release 24 hr omega-3 fatty acids 1,000 mg 1,000 mg PO DAILY 12/08/23 12/08/23 12/07/23 capsule pravastatin 20 mg tablet 20 mg PO DAILY 12/08/23 12/08/23 12/07/23 venlafaxine 150 mg 150 mg PO DAILY 12/08/23 12/08/23 12/07/23 capsule,extended release 24 hr venlafaxine 37.5 mg 37.5 mg PO DAILY 12/08/23 12/08/23 12/07/23 capsule,extended release 24 hr Active Medications Generic Name Dose Route Start Last Admin Trade Name Freq PRN Reason Stop Dose Admin Amlodipine Besylate 5 mg 12/08/23 09:00 12/08/23 09:43 Amlodipine Besylate 5 Mg Tab PO 01/07/24 08:59 5 mg DAILY FERNANDO Administration Aspirin 81 mg 12/08/23 09:00 12/08/23 09:45 Aspirin 81 Mg Ectab PO 01/07/24 08:59 81 mg DAILY FERNANDO Administration Hydrochlorothiazide 12.5 mg 12/08/23 09:00 12/08/23 08:23 Hydrochlorothiazide 25 Mg Tab PO 01/07/24 08:59 12.5 mg DAILY FERNANDO Administration Sodium Chloride 1,000 mls @ 125 mls/hr 12/08/23 05:40 12/08/23 06:13 Nss IV 01/07/24 05:39 125 mls/hr .Q8H FERNANDO Administration Metoprolol Succinate 25 mg 12/08/23 09:00 12/08/23 09:45 Metoprolol Succ 25mg Ext Rel Tab PO 01/07/24 08:59 25 mg DAILY FERNANDO Administration Pravastatin Sodium 20 mg 12/08/23 09:00 12/08/23 08:25 Pravastatin Sod 20 Mg Tab PO 01/07/24 08:59 20 mg DAILY FERNANDO Administration Venlafaxine HCl 37.5 mg 12/08/23 09:00 12/08/23 08:24 Venlafaxine Hcl Xr 37.5 Mg Capxr PO 01/07/24 08:59 37.5 mg DAILY FERNANDO Administration Venlafaxine HCl 150 mg 12/08/23 09:00 12/08/23 08:25 Venlafaxine Hcl Xr 150 Mg Capxr PO 01/07/24 08:59 150 mg DAILY FERNANDO Administration Past Medical History Medical History (Updated 12/08/23 @ 15:13 by Jm Tierney DO) Left ureteral stone Acute flank pain Renal colic Social History Smoking Status: Never smoker Hx Alcohol Use: Yes Alcohol type: beer, wine and hard liquor alcohol intake frequency: a few times a week Hx Substance Use: No Physical Exam Vital Signs Last Vital Signs Temp 97.7 F 12/08/23 14:55 Pulse 75 12/08/23 14:55 Resp 16 12/08/23 14:55 BP 123/63 12/08/23 14:55 Pulse Ox 95 12/08/23 14:55 O2 Del Method Room Air 12/08/23 14:55 O2 Flow Rate 2 12/08/23 04:00 Testing Laboratory Results 12/08/23 01:04 01/24/24 01:04 Urine Color Yellow 12/08/23 02:32 Urine Appearance Cloudy (Clear) A 12/08/23 02:32 Urine pH 8.0 (4.5-7.5) H 12/08/23 02:32 Ur Specific [place] 1.011 (1.000-1.030) 12/08/23 02:32 Urine Protein Negative (Negative) 12/08/23 02:32 Urine Glucose (UA) Trace (Negative) H 12/08/23 02:32 Urine Ketones 1+ (Negative) H 12/08/23 02:32 Urine Nitrite Negative (Negative) 12/08/23 02:32 Ur Leukocyte Esterase Negative (Negative) 12/08/23 02:32 Urine WBC (Auto) 1-5 /hpf (0-5) 12/08/23 02:32 Urine RBC (Auto) 10-30 /hpf (0-4) H 12/08/23 02:32 U Hyaline Cast (Auto) 0 /lpf (0-5) 12/08/23 02:32 U Epithel Cells (Auto) 5-10 /lpf (0-5) H 12/08/23 02:32 Urine Bacteria (Auto) Negative (Negative) 12/08/23 02:32
[2023-12-08] MEDS ORDERED: LACTATED RINGER'S 1,000 ML IV SCH (15:15)
[2023-12-08] MEDS ORDERED: ceFAZolin 2,000 MG/15 ML IV PUSH IV ONE (15:20)
[2023-12-08] MEDS ORDERED: ONDANSETRON INJ 2 MG/ML 2 ML VIAL ONE (15:41)
--- NOTE | 2023-12-08 15:44 | Operative Report ---
PG Post Operative Report Pre & Post Diagnosis Operation Date: 12/08/23 10:40 Pre-Op Diagnosis: Left ureteral stone, Acute flank pain Post-Op Diagnosis: Left ureteral stone, Acute flank pain I identified the patient and participated in the time-out.: Yes Procedure Operation Date: 12/08/23 10:40 Actual Procedures p Cystoscopy Left Retrograde Pyelogram with radiographic interpretation and Stent Placement(Left) - Yoandy Montgomery MD Surgeon Yoandy Montgomery MD Holistic Nutritionist None Estimated Blood Loss 0 Findings See Below Mild left hydronephrosis, stent in appropriate position Specimens None Drains 6 Beninese by 24 cm left ureteral stent Anesthesia Type MAC Complications none Indications 73-year-old female with a left proximal obstructing ureteral calculus and intractable pain Description of Procedure After informed consent was obtained, the patient was transported operative suite. MAC anesthesia was induced. The patient was placed in dorsal lithotomy position prepped and draped in a sterile fashion. They received preoperative Ancef for antibiotic prophylaxis. An appropriate surgical timeout was performed. A 22 Beninese rigid scope was inserted per urethra into the bladder. Manley cystoscopy revealed no stones or lesions. I turned my attention the left ureteral orifice and intubated this with a 5 Beninese open-ended catheter. A left retrograde pyelogram was shot which showed mild process. A sensor wire was advanced into the kidney and confirmed fluoroscopically. A 6 Beninese by 24 cm left ureteral stent was deployed with a good proximal coil in the renal pelvis and a good distal coil noted in the bladder. These were confirmed fluoroscopically and under direct visualization, respectively. The bladder was emptied and the scope was removed. This concluded the end of the case. All counts were correct at the end of the case. I was present, scrubbed, and actively participated for the entirety of the procedure. I attest to the content of the Intraoperative Record and any orders documented therein. Any exceptions are noted below.
--- NOTE | 2023-12-08 15:56 | Fluoroscopy Report ---
FL retrograde includes kub CLINICAL HISTORY: STENT PLACEMENT COMPARISON STUDY: CT of the abdomen and pelvis performed earlier today. FLUOROSCOPY TIME: 5.9 seconds. Ka, r: 1.09 mGy FLUOROSCOPIC IMAGES: 2 FINDINGS: Fluoroscopy was provided during left retrograde pyelogram with left ureteral stent insertio n. The proximal aspect of the ureteral stent is within the left renal pelvis. IMPRESSION: Fluoroscopy provided during left retrograde pyelogram with left ureteral stent insertion . ACT 112: Negative or not required by law. Electronically signed by: Don Parra M.D. 12/08/2023 3:55 PM
--- NOTE | 2023-12-08 16:03 | Anesthesiology Progress Note ---
Date of Service December 08, 2023 Anesthesia Post Procedure Vital Signs Vital Signs: Temp Pulse Pulse Pulse Resp BP BP 12/08/23 16:01 68 13 122/66 12/08/23 15:51 99.5 F 74 14 118/56 L 12/08/23 15:00 97.7 F 77 20 123/63 12/08/23 14:55 97.7 F 75 16 123/63 12/08/23 07:45 97.5 F L 69 16 102/59 L 12/08/23 05:51 12/08/23 05:40 97.9 F 68 16 120/71 12/08/23 04:00 67 20 12/08/23 02:49 75 20 12/08/23 00:55 97.5 F L 61 16 154/80 H BP Pulse Ox O2 Del Method O2 Flow Rate 12/08/23 16:01 91 Room Air 12/08/23 15:51 93 Room Air 12/08/23 15:00 95 Room Air 12/08/23 14:55 95 Room Air 12/08/23 07:45 93 Room Air 12/08/23 05:51 Room Air 12/08/23 05:40 95 Room Air 12/08/23 04:00 105/67 97 Nasal Cannula 2 12/08/23 02:49 135/75 97 Room Air 12/08/23 00:55 99 Room Air Transfer of Care Handoff Completed per policy Notes Mental Status: alert / awake / arousable and participated in evaluation Patient Amnestic to Procedure: Yes Nausea / Vomiting: adequately controlled Pain: adequately controlled Airway Patency, RR, SpO2: stable & adequate BP & HR: stable & adequate Hydration State: stable & adequate Anesthetic Complications: no major complications apparent and Pt Satisfied with anesthetic care
[2023-12-09] MEDS: SODIUM CHLORIDE 0.9% 1,000 ML IV SCH (03:08)
[2023-12-09 06:41] LABS: Basophils # (auto) 0.01 K/uL (0.00-0.20); Basophils % (auto) 0.1 %; Eosinophils # (auto) 0.03 K/uL (0.00-0.50); Eosinophils % (auto) 0.4 %; Hematocrit (blood only) 35.3 % (37.0-47.0); Immature Granulocytes # (auto) 0.02 K/uL (0.01-0.20); Immature Granulocytes % (auto) 0.3 %; Lymphocytes # (auto) 1.92 K/uL (1.20-3.40); Lymphocytes % (auto) 27.4 %; Mean Corpuscular Hemoglobin 30.5 pg (25.0-34.0); Mean Corpuscular Volume 89.8 fL (80.0-100.0); Mean Platelet Volume 10.1 fL (9.4-12.4); Monocytes # (auto) 0.71 K/uL (0.11-0.59); Monocytes % (auto) 10.1 %; Neutrophils # (auto) 4.33 K/uL (1.40-6.50); Neutrophils % (auto) 61.7 %; Platelet Count 206 K/uL (130-400); RDW Coefficient of Variation 12.8 % (11.5-14.5); RDW Standard Deviation 42.5 fL (36.4-46.3); Red Blood Count 3.93 M/uL (4.20-5.40); White Blood Count 7.02 K/ul (4.8-10.8)
[2023-12-09 06:52] LABS: BUN Creatinine Ratio 14.7 (10-20); Calcium 8.4 mg/dl (8.6-10.3); Creatinine Clr Calc Pharmacy 53.6 ml/min; Est GFR (African American) 90.4 ml/min; Magnesium 1.8 mg/dl (1.7-2.4); Potassium 3.2 mmol/L (3.5-5.1)
[2023-12-09] MEDS ORDERED: POTASSIUM CHLORIDE CRTAB 20 MEQ TABCR PO STA (07:29)
--- NOTE | 2023-12-09 07:48 | Urology Progress Note ---
Date of Service December 09, 2023 Assessment & Plan (1) Left ureteral stone: (2) Acute flank pain: Plan 73yo F admitted with severe left sided abdominal/flank pain. CT scan of the abdomen and pelvis on arrival demonstrated a 1.1 cm left ureteropelvic junction stone causing moderate hydronephrosis. POD #1 s/p cystoscopy and left ureteral stent placement Tolerating the ureteral stent with minimal bother Afebrile and hemodynamically stable. Labs show no leukocytosis and normal renal function. Urinalysis not suggestive of infection. Okay to d/c from perspective when medically stable Recommend d/c with Tamsulosin and prn pain medication for stent management Will arrange outpatient follow-up with our service to discuss definitive stone treatment. Expected clinical course reviewed, all questions were answered. Urology will sign off. Please call with any further questions or concerns. Admission and Anticipated Discharge Date Admission Date: December 08, 2023 Subjective Patient examined at bedside this a.m. Awake, resting in bed on arrival. No acute distress. Overall feeling well. Tolerating the stent with minimal bother. Denies fever, chills, nausea, vomiting. No reported pain at present. Voiding without issue. Reports some mild hematuria and dysuria. Review of Systems Constitutional: as per Subjective / HPI Genitourinary: as per Subjective / HPI Physical Exam Constitutional: no acute distress Respiratory: no respiratory distress and no labored breathing Neurologic: moves all extremities and awake Psychiatric: A+Ox3, euthymic affect Results & Data Vital Signs (Past 12 Hours) Vital Signs Temp Pulse Resp BP Pulse Ox O2 Del Method 12/08/23 21:56 36.6 C 75 16 122/73 93 Room Air PG Care Time/CCT Total # of Minutes Spent Total Time Spent with Patient: Total time spent is greater than 50% in coordination of care (as documented) at patient's floor/unit and/or counseling patient: Coding Level of Care Code 34862 SUB INP/OBS CARE 2/35MIN Diagnoses Left ureteral stone N20.1 Acute flank pain R10.9
[2023-12-09] MEDS ORDERED: TAMSULOSIN HCL 0.4 MG CAP PO SCH (09:00)
[2023-12-09] MEDS: amLODIPine BESYLATE 5 MG TAB PO SCH (09:01)
[2023-12-09] MEDS: ASPIRIN 81 MG ECTAB PO SCH (09:02)
[2023-12-09] MEDS: hydroCHLOROthiazide 25 MG TAB PO SCH (09:02)
[2023-12-09] MEDS: PRAVASTATIN SOD 20 MG TAB PO SCH (09:03)
[2023-12-09] MEDS: METOPROLOL SUCC 25MG EXT REL TAB PO SCH (09:03)
[2023-12-09] MEDS: VENLAFAXINE HCL XR 150 MG CAPXR PO SCH (09:04)
[2023-12-09] MEDS: VENLAFAXINE HCL XR 37.5 MG CAPXR PO SCH (09:05)
--- NOTE | 2023-12-09 09:41 | Discharge Summary ---
Discharge Summary Date of Service December 09, 2023 Notes For Next Care Provider Medication Changes From Visit Tamsulosin 0.4mg qd Admission HPI Per Admitting Provider 73-year-old female with past med history significant for hyperlipidemia, hypertension, constipation, GERD, osteoporosis, mild depression presents with the left lower abdominal pain and found to have 1.1 cm left ureteropelvic junction calculus causing moderate hydronephrosis. Patient states having left lower abdominal severe pain since yesterday afternoon. Associated with nausea and dry heaves. Was having chills and sweating. With the pain medication the pain is improved but she having some imbalance after the morphine. Denies any fever. No burning micturition. No hematuria. Somewhat constipated but had a normal bowel movement yesterday morning. Denies any chest pain or shortness of breath. No cough. No headache. No blurred visions. No earache no runny nose or no sore throat. Currently resting comfortably and hemodynamically stable. Past medical history. As mentioned above Past surgical history. Bilateral carpal tunnel surgery. Colonoscopy. Dilatation curettage. Removal of heel spur on left side. Bilateral cataracts. Tonsillectomy 2019. Left elbow fracture repair. Left femur head and neck repair. Social history. . No smoking. No alcohol use. No drug use. Family history. Mother had heart disorder. Ruptured AAA. Father had polio. Paternal grandfather had pancreatic cancer. Heart disorder. Paternal grandmother had Alzheimer's. Diabetes. Maternal grandfather had heart disorder. Maternal grandmother had diabetes. Heart disorder. Admission Exam Per Admitting Provider General- Not in distress. Head- atraumatic Eyes- PERRL. ENT- oropharynx clear Neck- supple, no JVD. Lungs- clear to auscultation no wheezing or crackles. Heart- regular rhythm; no murmur, no gallop. Abdomen- normal bowel sounds, soft, nontender, no distension. Extremities- no pretibial edema, no erythema seen. Neuro- alert, oriented x 3; PERRL, no facial palsy; no dysarthria; moves extremities Skin- warm & dry Principal Dx & Hospital Course #1 = Principal Diagnosis (1) Renal colic: Ms Diamond is a 73-year-old female with past med history significant for hyperlipidemia, hypertension, constipation, GERD, osteoporosis, mild depression presents with the left lower abdominal pain and found to have 1.1 cm left ur eteropelvic junction calculus causing moderate hydronephrosis. Patient underwent left ureteral stent placement on 12/08. Patient reports feeling much improved overall and eager for discharge. She s tates pain is controlled and denies further nausea. #Mild L hydronephrosis 2/2 nephrolithiasis s.p left ureteral stent #Left renal colic 1.1 cm left uteropelvic junction calculus causing moderate hydronephrosis No signs of infection at this time. OP follow up per Urology Discharge with 0.4 mg tamsulosin #Hypertension Continue metoprolol succinate and hydrochlorothiazide and amlodipine #Hyperlipidemia On statin #Depression On venlafaxine Discharge Exam Constitutional WD/WN, vitals as above Respiratory normal respiratory effort, lungs clear to auscultation Cardiovascular RRR, no murmur, no edema Gastrointestinal (Abdomen) normal bowel sounds, soft, nontender, no hepatosplenomegaly Musculoskeletal no cyanosis or clubbing, extremities motor strength 5/5 Updated Medication List Medication Instructions Recorded Confirmed Type amlodipine 5 mg tablet 5 mg PO DAILY 12/08/23 12/08/23 History aspirin 81 mg tablet,delayed 81 mg PO DAILY 12/08/23 12/08/23 History release calcium carbonate 600 mg-vitamin 1 tab PO BID 12/08/23 12/08/23 History D3 10 mcg (400 unit) tablet (Calcium 600 + D(3)) guar gum 1 tbsp PO DAILY 12/08/23 12/08/23 History hydrochlorothiazide 12.5 mg capsule 12.5 mg PO DAILY 12/08/23 12/08/23 History loratadine 10 mg tablet (Claritin) 10 mg PO DAILY PRN Congestion 12/08/23 12/08/23 History metoprolol succinate 25 mg 25 mg PO DAILY 12/08/23 12/08/23 History tablet,extended release 24 hr omega-3 fatty acids 1,000 mg 1,000 mg PO DAILY 12/08/23 12/08/23 History capsule pravastatin 20 mg tablet 20 mg PO DAILY 12/08/23 12/08/23 History venlafaxine 150 mg 150 mg PO DAILY 12/08/23 12/08/23 History capsule,extended release 24 hr venlafaxine 37.5 mg 37.5 mg PO DAILY 12/08/23 12/08/23 History capsule,extended release 24 hr tamsulosin 0.4 mg capsule 0.4 mg PO QAM #30 caps 12/09/23 Rx Hospital Stay Data Consultations 12/08/23 03:22 ED Decision to Admit Stat 12/08/23 03:41 Consult Urology Stat Procedures Performed Operation Date: 12/08/23 10:40 Actual Procedures p Cystoscopy Left Retrograde Pyelogram and Stent Placement(Left) - Yoandy Montgomery MD Diagnostic Imagining Performed 12/08/23 [place] retrograde includes kub Routine 12/08/23 01:59 CT abd pelvis IV con only Stat Pending Results Patient Have Any Pending Studies at Discharge: No Discharge Instructions Given to Patient (Per Discharging Provider) You were admitted for left flank pain and found to have a 1.1cm stone in your left kidney. A stent was placed on 12/08 in left ureter. Follow up with urology will be coordinated for outpatient stone removal. In the interim, you will be sent home with Tamsulosin 0.4 mg daily. This will help relax the structures that may allow for passage of stones and aid with spasms. Total Time Total Time Spent Total Time Spent (In Minutes): 35
== END 2023-12-09 11:18 | disposition home or self-care (01) | DRG 661 ==
LOC: ED 00:51 → 3E 04:06